=== PATIENT | male | born 1980 | race Caucasian/White ===

== ENCOUNTER 2017-06-15 01:07 | Emergency (ER) | payer MEDICARE ==
[2017-06-15] MEDS ORDERED: SODIUM CHLORIDE 0.9% 1000ML 1,000 ML IVS ONE (01:18)
--- NOTE | 2017-06-15 01:18 | ED.PDOC ---
History of Present Illness - General Chief Complaint: GI Problem Stated Complaint: N/V abdomen pain Time Seen by Provider: 06/15/17 01:17 Source: patient, family Exam Limitations: no limitations - History of Present Illness Initial Comments: Ander Murillo 36 y/o male stated that he had on and off nausea /vomiting for the last 4 days at least 3-4 x a day but today had it almost every 30 minutes and unable to get anything down including medications.Has history of DM 1 for 20 years.Had recently been treated for osteomyelitis and diabetic foot ulcer right foot. Timing/Duration: resolved prior to arrival, other - see hpi Improving Factors: nothing Worsening Factors: eating Associated Symptoms: nausea/vomiting, weakness Allergies/Adverse Reactions: Allergies NO KNOWN ALLERGY Allergy (Verified 06/15/17 01:15) Review of Systems - Review of Systems Constitutional: States: no symptoms reported EENTM: States: no symptoms reported Respiratory: States: no symptoms reported, cough Gastrointestinal/Abdominal: States: see HPI Skin: States: no symptoms reported Neurological: States: paresthesia - both lower extremities Past Medical History (General) - Patient Medical History Hx Hypertension: Yes Hx Diabetes: Yes Hx Other PMH: Yes - neuropathy,retinopathy,foot ulcer- right Surgical History: other - foot-right - Social History Hx Physical Abuse: No Hx Emotional Abuse: No Hx Suspected Abuse: No - Activities of Daily Living Patient Lives Alone: No - with family Family Medical History - Family History Mother Family History: Unknown Living Status: Still Living Hx Family Diabetes: Yes - multiple family members Hx Family Cancer: Yes - skin Physical Exam - Physical Exam General Appearance: Alert, Anxious, No apparent distress Eye Exam: right normal, left other - blurry vision -retinal detachment Ears, Nose, Throat: hearing grossly normal, normal pharynx, other - edentulous Neck: full range of motion, supple Respiratory: lungs clear, normal breath sounds Cardiovascular/Chest: normal peripheral pulses, regular rate, rhythm, tachycardia Peripheral Pulses: radial,right: 2+, radial,left: 2+, dorsalis pedis,right: 1+, dorsalis pedis,left: 1+ Gastrointestinal/Abdominal: normal bowel sounds, non tender, soft, no organomegaly Back Exam: no CVA tenderness, no vertebral tenderness Extremity: no pedal edema, no calf tenderness, other - loss of muscle mass Neurologic: sensory deficit - decrease sensation both feet Skin Exam: normal color, warm/dry Lymphatic: no adenopathy Progress - Progress Progress: 06/15/17 02:10 Last Vital Signs Temp 97.6 F 06/15/17 01:07 Pulse 112 H 06/15/17 02:05 Resp 16 06/15/17 02:05 BP 165/89 06/15/17 02:05 Pulse Ox 99 06/15/17 02:05 06/15/17 04:31 No further nausea/vomiting since arrival at ER - Results/Orders Results/Orders: Laboratory Tests 06/15/17 06/15/17 06/15/17 01:15 01:20 01:20 WBC 9.4 RBC 4.29 L Hgb 13.2 L Hct 37.7 L MCV 88.0 MCH 30.7 MCHC 34.9 RDW 13.5 Plt Count 331 MPV 8.1 Absolute Neuts (auto) 6.10 Absolute Lymphs (auto) 2.20 Absolute Monos (auto) 0.90 H Absolute Eos (auto) 0.10 Absolute Basos (auto) 0.10 Neutrophils % 65.3 Lymphocytes % 23.3 Monocytes % 9.5 H Eosinophils % 0.9 L Basophils % 1.0 Sodium 129 L Potassium 4.0 Chloride 90 L Carbon Dioxide 26 Anion Gap 17.0 BUN 33 H Creatinine 1.69 H BUN/Creatinine Ratio 19.5 POC Glucose 293 H Random Glucose 300 H Serum Osmolality 277.4 Calcium 9.2 Phosphorus Magnesium Total Bilirubin 0.7 AST 18 ALT 14 Alkaline Phosphatase 64 Troponin I Serum Total Protein 6.9 Albumin 3.0 L Globulin 3.9 H Albumin/Globulin Ratio 0.8 L Lipase 17 L 06/15/17 06/15/17 06/15/17 01:20 01:20 01:20 WBC RBC Hgb Hct MCV MCH MCHC RDW Plt Count MPV Absolute Neuts (auto) Absolute Lymphs (auto) Absolute Monos (auto) Absolute Eos (auto) Absolute Basos (auto) Neutrophils % Lymphocytes % Monocytes % Eosinophils % Basophils % Sodium Potassium Chloride Carbon Dioxide Anion Gap BUN Creatinine BUN/Creatinine Ratio POC Glucose Random Glucose Serum Osmolality Calcium Phosphorus 3.0 Magnesium 1.7 L Total Bilirubin AST ALT Alkaline Phosphatase Troponin I < 0.02 Serum Total Protein Albumin Globulin Albumin/Globulin Ratio Lipase 06/15/17 06/15/17 03:10 04:25 WBC RBC Hgb Hct MCV MCH MCHC RDW Plt Count MPV Absolute Neuts (auto) Absolute Lymphs (auto) Absolute Monos (auto) Absolute Eos (auto) Absolute Basos (auto) Neutrophils % Lymphocytes % Monocytes % Eosinophils % Basophils % Sodium Potassium Chloride Carbon Dioxide Anion Gap BUN Creatinine BUN/Creatinine Ratio POC Glucose 300 H 235 H Random Glucose Serum Osmolality Calcium Phosphorus Magnesium Total Bilirubin AST ALT Alkaline Phosphatase Troponin I Serum Total Protein Albumin Globulin Albumin/Globulin Ratio Lipase - EKG/XRAY/CT EKG: Sinus, Tachy, no ST T wave changes Comments: heart [id number] Departure - Departure Clinical Impression: Dehydration, Renal insufficiency Nausea & vomiting Qualifiers: Vomiting type: unspecified Vomiting Intractability: unspecified Qualified Code( s): R11.2 - Nausea with vomiting, unspecified Diabetes Qualifiers: Diabetes mellitus type: type 1 Diabetes mellitus complication status: with other specified complication Qualified Code(s): E10.69 - Type 1 diabetes mellitus with other specified complication Time of Disposition: 04:34 Disposition: Discharge to Home or Self Care Condition: Fair Departure Forms: ED Discharge - Pt. Copy, Patient Portal Self Enrollment Instructions: Gastroparesis, DI for Gastroparesis Additional Instructions: Continue with all home medication;Return to ER as needed ;Follow up with primary md for GI specialist referral
[2017-06-15] MEDS ORDERED: METOCLOPRAMIDE HCL INJ 10 MG/2 ML VIAL IV ONE (01:22)
[2017-06-15 01:26] VITALS: TEMP 97.6
[2017-06-15] MEDS ORDERED: MAGNESIUM SULFATE PREMIX 2GM 2 GM in PREMIX BAG 1 BAG IVPB ONE (01:57)
[2017-06-15] MEDS ORDERED: MAGNESIUM SULFATE PREMIX 2GM 50 ML IVPB ONE (02:03)
[2017-06-15] MEDS: INSULIN, REG.(HUMAN) 100 U/ML VIAL SUBCU ONE ×2 (02:05→02:12)
[2017-06-15] MEDS ORDERED: INSULIN, REG.(HUMAN) 100 U/ML VIAL SUBCU ONE (02:12)
[2017-06-15] MEDS ORDERED: PANTOPRAZOLE INJECTION 80 MG in SODIUM CHLORIDE 0.9% 100ML 80 ML IVPB ONE (02:16)
[2017-06-15] MEDS ORDERED: PANTOPRAZOLE SODIUM IV 40 MG VIAL ONE (02:33)
[2017-06-15] MEDS ORDERED: SODIUM CHLORIDE 0.9% 100ML 0 ML IVPB ONE (02:33)
[2017-06-15] MEDS ORDERED: SODIUM CHLORIDE 0.9% 100ML 100 ML IVPB ONE (02:34)
[2017-06-15] MEDS ORDERED: SODIUM CHLORIDE 0.9% 500ML 500 ML IVS ONE (03:02)
[2017-06-15 03:04] VITALS: O2SAT 98
[2017-06-15 04:41] VITALS: BP 135/91
== END 2017-06-15 04:47 | disposition home or self-care (01) ==
LOC: ER 01:07
DX: E86.0 Dehydration (principal); R11.2 Nausea with vomiting, unspecified; N28.9 Disorder of kidney and ureter, unspecified; E10.40 Type 1 diabetes mellitus with diabetic neuropathy, unspecified; E10.319 Type 1 diabetes mellitus with unspecified diabetic retinopathy without macular edema; E10.621 Type 1 diabetes mellitus with foot ulcer
CPT/HCPCS: 36415; 36416; 80053; 82948; 83690; 83735; 84100; 84484; 85025; 93005; J2765; J3475; J7030; J7040; J7050

== ENCOUNTER → 2017-06-22 | Outpatient (CLI) | payer MEDICARE | END | disposition home or self-care (01) | LOC: GMAB 17:28 | PROVIDERS: ATTEND Family Medicine | DX: E10.69 Type 1 diabetes mellitus with other specified complication (principal); L97.512 Non-pressure chronic ulcer of other part of right foot with fat layer exposed ==

== ENCOUNTER → 2017-08-31 | Outpatient (CLI) | payer MEDICARE | LOC: GMAB 18:35 | PROVIDERS: ATTEND Family Medicine | DX: D50.9 Iron deficiency anemia, unspecified (principal); M54.14 Radiculopathy, thoracic region ==

== ENCOUNTER 2017-09-08 10:33 | Observation (INO) | payer MEDICARE, OTHER ==
[2017-09-08] MEDS ORDERED: METOCLOPRAMIDE HCL INJ 10 MG/2 ML VIAL IV ONE (11:06)
[2017-09-08] MEDS ORDERED: SODIUM CHLORIDE 0.9% 1000ML 1,000 ML IVS ONE (11:06)
--- NOTE | 2017-09-08 11:10 | ED.PDOC ---
History of Present Illness - General Chief Complaint: Cardiovascular Problem Stated Complaint: chest pain and vomiting Time Seen by Provider: 09/08/17 11:05 Source: patient Exam Limitations: no limitations - History of Present Illness Initial Comments: HE HAS TYPE I DM ON INSULIN AND HAD DIABETIC GASTROPARESIS. HAS BEEN VOMITING FOR THE PAST THREE DAYS. Timing/Duration: days - THREE Worsening Factors: nothing Allergies/Adverse Reactions: Allergies NO KNOWN ALLERGY Allergy (Verified 09/08/17 10:45) Review of Systems - Review of Systems Constitutional: States: malaise, weakness EENTM: States: no symptoms reported Respiratory: States: no symptoms reported Cardiology: States: chest pain Gastrointestinal/Abdominal: States: abdominal pain, diarrhea Musculoskeletal: States: no symptoms reported Skin: States: no symptoms reported Neurological: States: no symptoms reported Endocrine: States: no symptoms reported Hematologic/Lymphatic: States: no symptoms reported Past Medical History (General) - Patient Medical History Hx Seizures: No Hx Stroke: No Hx Dementia: No Hx Asthma: No Hx of COPD: No Hx Cardiac Disorders: No Hx Congestive Heart Failure: No Hx Pacemaker: No Hx Hypertension: Yes Hx Thyroid Disease: No Hx Diabetes: Yes Hx Gastroesophageal Reflux: Yes Hx Renal Disease: No Hx Cancer: No Hx of HIV: No Hx Hepatitis C: No Hx MRSA: No Surgical History: other - Vaccination History Hx Tetanus, Diphtheria Vaccination: No Hx Influenza Vaccination: No - Social History Hx Tobacco Use: Yes Hx Alcohol Use: No Hx Substance Use: No Hx Substance Use Treatment: No Hx Depression: No Hx Physical Abuse: No Hx Emotional Abuse: No Hx Suspected Abuse: No Family Medical History - Family History Mother Family History: Unknown Living Status: Still Living Hx Family Diabetes: Yes - multiple family members Hx Family Cancer: Yes - skin Physical Exam - Physical Exam General Appearance: Alert, No apparent distress Eyes, Ears, Nose, Throat Exam: PERRL/EOMI, normal ENT inspection, pharynx normal , other - ORAL MUCOSA IS DRY Neck: non-tender, full range of motion, supple, normal inspection Respiratory: lungs clear, normal breath sounds, no respiratory distress, no accessory muscle use Cardiovascular/Chest: normal peripheral pulses, regular rate, rhythm, no edema, no gallop, no JVD, no murmur Peripheral Pulses: radial,right: 2+, radial,left: 2+ Gastrointestinal/Abdominal: normal bowel sounds, non tender, soft, no organomegaly, no pulsatile mass Rectal Exam: deferred Extremity: other - RIGHT BKA - JUL 01 2017 Neurologic: no motor/sensory deficits, alert, normal mood/affect, oriented x 3 Skin Exam: normal color Lymphatic: no adenopathy Progress - Results/Orders Results/Orders: THE LAB IS REPORTED: BS OF 294, CREATININE IS 1.9 Departure - Departure Clinical Impression: Vomiting Qualifiers: Vomiting type: unspecified Vomiting Intractability: intractable Nausea presence : with nausea Qualified Code(s): R11.2 - Nausea with vomiting, unspecified [id number] kidney injury Qualifiers: Acute renal failure type: unspecified Chronic kidney disease stage: unspecified stage Qualified Code(s): N17.9 - Acute kidney failure, unspecified; N18.9 - Chronic kidney disease, unspecified Diabetes mellitus Qualifiers: Diabetes mellitus type: type 1 Diabetes mellitus complication status: with kidney complications Time of Disposition: 12:59 Disposition: Admit Patient Condition: Fair Departure Forms: ED Discharge - Pt. Copy, Patient Portal Self Enrollment Instructions: DI for Chest Pain Decision To Admit - Decistion To Admit Decision to Admit Reason: Admit from ER Decision to Admit Date: 09/08/17 Decision to Admit Time: 12:57
--- NOTE | 2017-09-08 14:31 | HP ---
SUPERVISING PHYSICIAN: Bandar Knight M.D. CHIEF COMPLAINT: Nausea and vomiting. HISTORY OF PRESENT ILLNESS: This is a 36 year-old male patient with a 20 year history of type 1 diabetes mellitus. He has a known history of diabetic gastroparesis and takes Reglan for this. However, he came to the Emergency Room with some nausea and vomiting. It apparently has been going on for the last 3 days or so. In the E. R., he was noted to have an elevated creatinine on his labs. Creatinine was 1.9, baseline is lower than that, probably around 1.5. According to the patient, he was on vancomycin for a chronic wound infection and this threw him into some renal failure. He is not really aware of what his true baseline is but as of recently it has been around 1.5. Anyhow , he is referred for admission due to dehydration and acute kidney injury. At time of examination, the patient is alert and oriented. He is not in any severe distress. He does have a little bit of epigastric pain to palpation. PAST MEDICAL HISTORY: 1. Type 1 diabetes since 15 years old. 2. Hypertension recently. 3. Chronic renal insufficiency, according to him secondary to the vancomycin he was getting for chronic wound infection. 4. Diabetic gastroparesis. PAST SURGICAL HISTORY: 1. Right lower extremity [id number] amputation. CURRENT MEDICATIONS: 1. He is on a muscle relaxer but he does not know the name of it. 2. Tramadol. 3. Reglan 10 mg 3 times a day. 4. Lisinopril 10 mg daily. 5. Lantus 20 units in the morning, 20 units at night. 6. Humalog sliding scale. ALLERGIES: NO KNOWN DRUG ALLERGIES. FAMILY HISTORY: Hypertension and heart disease. SOCIAL HISTORY: Nondrinker, nonsmoker. No illicit drugs. REVIEW OF SYSTEMS: CONSTITUTIONAL: No fever or chills. No recent weight loss or weight gain. HEENT: No headaches, vision changes, nasal congestion, ear pain or throat pain. RESPIRATORY: No cough or history of pleuritic chest pain. CARDIOVASCULAR: No chest pain, palpitations or peripheral edema. GASTROINTESTINAL: Positive for some upper abdominal pain, nausea and vomiting. No diarrhea. No constipation. GENITOURINARY: No dysuria, frequency or flank pain. HEMATOLOGIC: No easy bruising or transfusion reaction. ENDOCRINE: No polydipsia, polyuria or polyphagia. No heat or cold intolerance. MUSCULOSKELETAL: No muscle cramps, joint pain or joint swelling. NEUROLOGIC: No syncope, seizures or confusion. PHYSICAL EXAMINATION: VITAL SIGNS: Blood pressure 149/77, heart rate 105, respiratory rate 18, temperature 99.2, oxygen saturation 97%. GENERAL: Mr. Murillo is a 36 year-old male patient in no active distress currently. HEENT: Normocephalic and atraumatic. EYES: Pupils are equal and reactive. NOSE: No drainage. THROAT: Slightly dry mucosa. NECK: Supple. Midline trachea. No jugular venous distention. CHEST: Symmetrical with equal rise and fall of the chest with inspiration and expiration. Lung sounds are clear to auscultation bilaterally. CARDIOVASCULAR: Regular rate and rhythm. Normal S1 and S2. Slightly tachycardic. ABDOMEN: Soft, positive bowel sounds. Some mild epigastric tenderness to palpation. GENITOURINARY: Exam is deferred. EXTREMITIES: Lower extremities with a noted right [id number] amputation. Left lower extremity is with no edema. Pulses are 1+. Capillary refill is less than 2 seconds. NEUROLOGIC: The patient is alert and oriented. LABORATORY: Noted in the E. R. with a white count 12.3, hemoglobin 10, hematocrit 29, platelet count 282. Sodium 132, potassium 3.8, chloride 94, CO2 is 25, BUN 39, creatinine 1.9, glucose 294, calcium 8.3, albumin 2.4. ASSESSMENT: 1. Acute on chronic kidney failure secondary to dehydration. 2. Diabetic gastroparesis with active nausea and vomiting. 3. Abdominal pain secondary to #2. 4. Uncontrolled diabetes mellitus. 5. Leukocytosis which is likely due to volume depletion, hemoconcentration. 6. Hypertension. PLAN: At this time, will rehydrate the patient with IV fluids. I am going to restart his insulin and home medications. Will give him p.r.n. for pain control and restart diet as well. Will recheck his labs in the morning to ensure that he has had improvement in his creatinine. Reglan has been ordered for his gastroparesis as well but he already takes this at home. #[id number] [facility]
[2017-09-08] MEDS ORDERED: GLUCAGON INJ 1 MG VIAL SUBCU PRN (16:42)
[2017-09-08] MEDS ORDERED: DEXTROSE 50% 25 GM/50 ML SYG IV PRN (16:42)
[2017-09-08] MEDS ORDERED: traMADol HCL 50 MG TAB PO PRN (16:48)
[2017-09-08] MEDS ORDERED: ONDANSETRON INJ 4 MG/2 ML VIAL IV PRN (16:48)
[2017-09-08] MEDS ORDERED: IV SET AND CAP CHANGE INJ INJ SCH (17:00)
[2017-09-08] MEDS: MORPHINE SULFATE INJ 10 MG/ML VIAL IV PRN ×2 (17:53→20:57)
[2017-09-08] MEDS: KCL 20 MEQ/NS 1,000 ML IVS PRN (17:55)
[2017-09-08] MEDS ORDERED: LISINOPRIL 10 MG TAB PO ONE (18:22)
[2017-09-08] MEDS ORDERED: CYCLOBENZAPRINE HCL 10 MG TAB PO PRN (18:46)
[2017-09-08] MEDS: METOCLOPRAMIDE HCL 5 MG TAB PO SCH (20:48)
[2017-09-08] MEDS: SODIUM CHLORIDE 0.9% (FLUSH) 10 ML SYG IV PRN (20:57)
[2017-09-08] MEDS: ATROPINE 1% OPHTH SOL 1 DROP DROPS LEFT_EYE SCH (20:59)
[2017-09-08] MEDS: PREDNISOLONE ACETATE 1% LEFT_EYE SCH (21:00)
[2017-09-08] MEDS: INSULIN DETEMIR 100 UNITS/ML PEN SUBCU SCH (21:00)
[2017-09-08] MEDS: INSULIN LISPRO 100 UNITS/ML PEN SUBCU SCH (21:00)
[2017-09-09] MEDS: KCL 20 MEQ/NS 1,000 ML IVS PRN (03:59)
[2017-09-09] MEDS: SODIUM CHLORIDE 0.9% (FLUSH) 10 ML SYG IV PRN ×2 (04:00→20:45)
[2017-09-09] MEDS: MORPHINE SULFATE INJ 10 MG/ML VIAL IV PRN ×4 (04:00→20:42)
[2017-09-09] MEDS: METOCLOPRAMIDE HCL 5 MG TAB PO SCH ×4 (06:10→21:08)
[2017-09-09] MEDS: OMEPRAZOLE CAP 20 MG CAP PO SCH (06:10)
[2017-09-09] MEDS: INSULIN LISPRO 100 UNITS/ML PEN SUBCU SCH ×4 (07:21→21:16)
[2017-09-09] MEDS: INSULIN DETEMIR 100 UNITS/ML PEN SUBCU SCH ×2 (08:25→21:11)
[2017-09-09] MEDS: ATROPINE 1% OPHTH SOL 1 DROP DROPS LEFT_EYE SCH ×2 (08:26→21:07)
[2017-09-09] MEDS ORDERED: LISINOPRIL 10 MG TAB PO SCH (09:00)
[2017-09-09] MEDS: PREDNISOLONE ACETATE 1% LEFT_EYE SCH (09:19)
[2017-09-09] MEDS ORDERED: MORPHINE SULFATE INJ 10 MG/ML VIAL ONE (10:01)
[2017-09-09] MEDS ORDERED: diphenhydrAMINE HCL 50 MG/ML VIAL IV ONE ×2 (10:30→13:28)
[2017-09-09] MEDS ORDERED: FUROSEMIDE INJ 40 MG/4 ML VIAL IV ONE ×2 (10:30→15:34)
[2017-09-09] MEDS ORDERED: ACETAMINOPHEN 325 MG TAB PO ONE ×2 (10:30→13:28)
[2017-09-09] MEDS ORDERED: SODIUM CHLORIDE 0.9% 500ML 500 ML IVS SCH (10:30)
[2017-09-09] MEDS: prednisoLONE ACETATE 1% OPHTH SOL 5 ML BTTL LEFT_EYE SCH ×4 (11:10→21:08)
--- NOTE | 2017-09-09 11:26 | PN ---
SUPERVISING PHYSICIAN: Bandar Knight MD DATE: 09/09/17 SUBJECTIVE: The patient is lying in bed. He complains of extreme weakness and being very tired. Otherwise, no changes. He is concerned that he would like to get his prothesis fitted tomorrow as he has cancelled his appointment several times, but at this point feels too weak to leave the hospital. OBJECTIVE: VITAL SIGNS: Afebrile. Heart rate up to 108 and is now 97. Blood pressure 124/78. Respiratory rate 18. O2 saturation 98% on room air. HEENT: Pale oral mucous membranes. LUNGS: Essentially clear to auscultation bilaterally. CARDIAC: Regular rate and rhythm. At times, he does become slightly tachycardic. GASTROINTESTINAL: Abdomen is soft, nondistended, nontender. Bowel sounds are positive. EXTREMITIES: There is a right ripyq-gei-obyk amputation. There is no edema to the left lower extremity. NEUROLOGIC: Awake, alert and oriented times three. He is very pale. LABORATORY: WBCs have normalized today to 9.4, but his hemoglobin has dropped from 10 to 8.3, hematocrit 29 yesterday and is 23.6 today. Sodium 137, potassium 4, chloride 103. Carbon dioxide 26, BUN 37, creatinine 1.94. Blood sugars have run between 45 and 87. Calcium 7.7. All other labs and films have been reviewed via the EMR. ASSESSMENT: 1. Acute on chronic kidney failure secondary to dehydration. 2. Anemia, most likely secondary to his chronic kidney failure. His hemoglobin has dropped 1.3 grams overnight. 3. Diabetic gastroparesis with nausea and vomiting on admission, now resolved. 4. Abdominal pain secondary to gastroparesis, improved. 5. Uncontrolled diabetes mellitus. 6. Leukocytosis, improved. 7. Hypertension. PLAN: We will continue present supportive care. I will give him 2 units of packed red blood cells due to his weakness and his drop in hemoglobin as well as his underlying chronic kidney disease. Hopefully we can discharge him late this evening or early tomorrow morning after the blood infusion is complete. I will recheck his labs at that time. I would like him to get his prosthesis fitted if possible tomorrow, so will discharge him if at all possible. I think he would benefit greatly from seeing a high risk ob and I will get him an appointment with Dr. Nina as an outpatient. At this point, we will continue to monitor the patient closely and follow as needed. Dr. Knight is the collaborating physician and available for consultation. #[id number] him if at a; possible MTDD
[2017-09-09] MEDS ORDERED: MAGNESIUM OXIDE 400 MG TAB ONE (23:30)
[2017-09-09] MEDS ORDERED: MAGNESIUM OXIDE 400 MG TAB PO ONE (23:59)
[2017-09-10 02:17] VITALS: TEMP 97; O2SAT 97
[2017-09-10] MEDS: OMEPRAZOLE CAP 20 MG CAP PO SCH (05:55)
[2017-09-10 06:09] VITALS: BP 153/94
--- NOTE | 2017-09-10 11:03 | DS ---
SUPERVISING PHYSICIAN: Bandar Knight MD DISCHARGE DIAGNOSIS: 1. Acute on chronic kidney failure secondary to dehydration. 2. Anemia, most likely secondary to his chronic kidney failure. His hemoglobin dropped 1.7 grams on the second day of admission. He received 2 units of packed red blood cells. 3. Diabetic gastroparesis with nausea and vomiting on admission, now improved. 4. Abdominal pain secondary to gastroparesis, improved. 5. Uncontrolled diabetes mellitus. 6. Leukocytosis, improved. 7. Hypertension, improved. HISTORY OF PRESENT ILLNESS: This is a 36-year-old male patient who has a history of diabetic gastroparesis and takes Reglan for this. He also has a significant history of diabetes mellitus, type 1. He presented to the Emergency Room with some nausea and vomiting that had been going on for 3 days prior to his admission. Creatinine was elevated on his labs at 1.9. His baseline is usually about 1.5. According to the patient, he was on vancomycin for a chronic wound infection of his foot and this threw him into some renal failure. He is not really aware of what his true baseline creatinine is but recently it has been 1.5 since the vancomycin administration. He was admitted to the hospital for dehydration and acute kidney injury. HOSPITAL COURSE: He was hydrated during his hospital stay, but overnight his hemoglobin dropped 1.7 grams down to 8.3. He was extremely weak and pale. His anemia may be due to his chronic kidney injury. He received 2 units of packed red blood cells. His hemoglobin came up to 10.4 and hematocrit 30.3. WBCs normalized to 7.8. Creatinine has stayed about 1.9 to 2. He is feeling much improved and will be discharged home. DISCHARGE PLAN: The patient will be discharged home in stable condition. He is to resume his previous medications and increase his activity as tolerated. He is to have a followup appointment his primary care physician, Dr. Pete Hu within 2 weeks. It would also be advisable for him to have a referral to Dr. Nina, tea plantation worker, due to his worsening kidney function and his chronic anemia. He is to return to the hospital or followup with Dr. Hu for any further problems or complaints. DISCHARGE MEDICATIONS: 1. Tramadol. 2. Prednisolone ophthalmic. 3. Cyclobenzaprine. 4. Atropine. 5. Zofran. 6. Lisinopril. 7. Metoclopramide. 8. Humalog insulin. 9. Levemir insulin. Dr. Knight is the collaborating physician and available for consultation. [facility][id number] [facility]ALS[facility]
[2017-09-10] MEDS ORDERED: MAGNESIUM OXIDE 400 MG TAB PO ONE (23:15)
== END 2017-09-10 06:50 | disposition home or self-care (01) ==
LOC: ER 10:33 → MS 14:30
PROVIDERS: ADMIT Nurse Practitioner; ATTEND Nurse Practitioner Acute Care
DX: N17.9 Acute kidney failure, unspecified (principal); E86.0 Dehydration; I12.9 Hypertensive chronic kidney disease with stage 1 through stage 4 chronic kidney disease, or unspecified chronic kidney disease; N18.9 Chronic kidney disease, unspecified; D63.1 Anemia in chronic kidney disease; E10.22 Type 1 diabetes mellitus with diabetic chronic kidney disease; E10.43 Type 1 diabetes mellitus with diabetic autonomic (poly)neuropathy; K31.84 Gastroparesis; E10.65 Type 1 diabetes mellitus with hyperglycemia; D72.829 Elevated white blood cell count, unspecified; R10.13 Epigastric pain; Z79.4 Long term (current) use of insulin; Z79.899 Other long term (current) drug therapy; Z89.511 Acquired absence of right leg below knee
CPT/HCPCS: 36415 ×4; 36416 ×7; 80048 ×2; 80053; 81001; 82009; 82948 ×12; 83735; 85025 ×3; 86850; 86900; 86901; 86922; 93005 ×2; 94760 ×3; 96361; 96372 ×2; 96374; 96375 ×2; 96376 ×2; 99284; G0378; J1200; J1815 ×2; J1940; J2270 ×6; J2405; J2765; J3480 ×2; J7030; J7040; P9016 ×2

== ENCOUNTER 2017-09-14 15:07 | Emergency (ER) | payer OTHER ==
[2017-09-14] MEDS ORDERED: PROMETHAZINE HCL INJ 25 MG in SODIUM CHLORIDE 0.9% 50ML 50 ML IVPB ONE (15:26)
[2017-09-14] MEDS ORDERED: SODIUM CHLORIDE 0.9% 1000ML 1,000 ML IVS ONE ×2 (15:26→17:46)
[2017-09-14] MEDS ORDERED: ONDANSETRON ODT 8 MG TAB SL ONE (15:26)
[2017-09-14] MEDS ORDERED: PROMETHAZINE HCL INJ 25 MG/ML VIAL ONE (15:35)
[2017-09-14] MEDS ORDERED: SODIUM CHLORIDE 0.9% 50ML 50 ML ONE (15:36)
[2017-09-14 15:38] VITALS: TEMP 96.7
--- NOTE | 2017-09-14 16:04 | RAD ---
EXAM DESCRIPTION: Abdomen Series CLINICAL HISTORY: n/v COMPARISON: None Available. TECHNIQUE: PA chest with supine and upright views of the abdomen] FINDINGS: The lungs are clear. The heart is normal size. There is an unremarkable bowel gas pattern. There is no mass or calculus. A small amount of contrast media is observed in the distal colon. IMPRESSION: Normal acute abdomen series Electronically signed by: Madhu Nolan MD 09/14/2017 4:03 PM [facility]
[2017-09-14] MEDS ORDERED: MAGNESIUM SULFATE PREMIX 2GM 2 GM in PREMIX BAG 1 BAG IVPB ONE (17:11)
[2017-09-14] MEDS ORDERED: MAGNESIUM SULFATE PREMIX 2GM 50 ML IVPB ONE (17:16)
[2017-09-14] MEDS ORDERED: ALUM & MAG HYDROX-SIMETHICONE 30 ML, LIDOCAINE VISCOUS 2% 15 ML PO ONE ×2 (17:42)
[2017-09-14] MEDS ORDERED: METOCLOPRAMIDE HCL INJ 10 MG/2 ML VIAL IV ONE (17:42)
[2017-09-14] MEDS ORDERED: INSULIN LISPRO 100 UNITS/ML PEN SUBCU ONE (17:43)
[2017-09-14] MEDS ORDERED: METOPROLOL TARTRATE 25 MG TAB PO ONE (17:44)
[2017-09-14] MEDS ORDERED: LIDOCAINE HCL 2% (MOUTH-THROAT) 15 ML UD ONE (17:45)
[2017-09-14] MEDS ORDERED: ALUM & MAG HYDROX-SIMETHICONE 30 ML UD ONE (17:45)
[2017-09-14] MEDS ORDERED: traMADol HCL 50 MG TAB PO ONE (17:55)
[2017-09-14] MEDS ORDERED: LISINOPRIL 10 MG TAB PO ONE (18:11)
[2017-09-14] MEDS ORDERED: SCOPOLAMINE PATCH 1.5MG 1 EA TD ONE (19:34)
--- NOTE | 2017-09-14 21:10 | ED.PDOC ---
History of Present Illness - General Chief Complaint: GI Problem Stated Complaint: vomiting Time Seen by Provider: 09/14/17 15:26 Source: patient Exam Limitations: no limitations - History of Present Illness Initial Comments: the patient is a 37-year-old male presenting to the emergency room secondary tonausea and vomiting the last 24 hours. He does have a history of significant diabetic gastroparesis. He was admitted secondary to this problem one to 2 weeks ago. He has been taking his Reglan. His blood pressure was elevated upon arrival here today. No real headache. He is uncertain what his blood pressures normally run at home but he does take lisinopril. No blood or bile in the vomitus. Timing/Duration: 24 hours Severity: moderate Improving Factors: nothing Worsening Factors: nothing Associated Symptoms: loss of appetite, malaise, nausea/vomiting, weakness Allergies/Adverse Reactions: Allergies NO KNOWN ALLERGY Allergy (Verified 09/08/17 10:45) Home Medications: Ambulatory Orders Atropine 1% Ophth Ladi [Isopto Atropine 1%] 1 drop LEFT_EYE BID 09/08/17 Cyclobenzaprine HCl 10 mg PO TID PRN 09/08/17 Insulin Lispro (Human) [Humalog] 8 unit SC DAILY 09/08/17 Lisinopril 10 mg PO DAILY 09/08/17 Metoclopramide HCl 10 mg PO TID 09/08/17 Ondansetron [Ondansetron Odt] 4 mg SL Q6H PRN 09/08/17 Tramadol HCl 50 mg PO Q4H PRN 09/08/17 prednisoLONE ACETATE 1% OPHTH [Econopred Plus] 1 drop LEFT_EYE QID 09/08/17 Insulin Detemir [Levemir Pen] 20 units SUBCU BID pen 09/09/17 Promethazine HCl 25 mg PO Q6H PRN #10 tab 09/14/17 Review of Systems - Review of Systems Constitutional: States: malaise EENTM: States: no symptoms reported Respiratory: States: no symptoms reported Cardiology: States: no symptoms reported Gastrointestinal/Abdominal: States: abdominal pain, nausea, vomiting Genitourinary: States: no symptoms reported Musculoskeletal: States: no symptoms reported Skin: States: no symptoms reported Neurological: States: no symptoms reported - hronic changes only. Endocrine: States: no symptoms reported All other Systems: No Change from Baseline Past Medical History (General) - Patient Medical History Hx Seizures: No Hx Stroke: No Hx Dementia: No Hx Asthma: No Hx of COPD: No Hx Cardiac Disorders: No Hx Congestive Heart Failure: No Hx Pacemaker: No Hx Hypertension: No Hx Thyroid Disease: No Hx Diabetes: Yes Hx Gastroesophageal Reflux: Yes Hx Renal Disease: No Hx Cancer: No Hx of HIV: No Hx Hepatitis C: No Hx MRSA: No - Vaccination History Hx Tetanus, Diphtheria Vaccination: No Hx Influenza Vaccination: Yes Hx Pneumococcal Vaccination: Yes - Social History Hx Tobacco Use: No Hx Alcohol Use: No Hx Substance Use: No Hx Substance Use Treatment: No Hx Depression: No Hx Physical Abuse: No Hx Emotional Abuse: No Hx Suspected Abuse: No Family Medical History - Family History Mother Family History: Unknown Living Status: Still Living Hx Family Diabetes: Yes - multiple family members Hx Family Cancer: Yes - skin Physical Exam - Physical Exam General Appearance: Alert, Other - vomiting and dry heaving Eye Exam: bilateral normal Ears, Nose, Throat: hearing grossly normal, normal ENT inspection, normal pharynx Neck: full range of motion, supple, normal inspection Respiratory: lungs clear, normal breath sounds, no accessory muscle use Cardiovascular/Chest: normal peripheral pulses, no edema, tachycardia - sinus tachycardiafrom 110-140 Peripheral Pulses: radial,right: 2+, radial,left: 2+, dorsalis pedis,right: 2+, dorsalis pedis,left: 2+ Gastrointestinal/Abdominal: non tender, soft Rectal Exam: deferred Back Exam: normal inspection, no CVA tenderness, no vertebral tenderness Extremity: normal range of motion, non-tender, no pedal edema, normal capillary refill, other - the patient has a right BKA 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, alert, normal mood/affect, oriented x 3 Skin Exam: pallor Comments: Vital Signs - 8 hr 09/14/17 09/14/17 09/14/17 15:23 16:08 17:00 Temperature 96.7 F L Pulse Rate [ 130 H 120 H 117 H Right Brachial] Respiratory 22 18 20 Rate Blood Pressure 182/124 189/121 206/127 [Right Arm] O2 Sat by Pulse 99 98 98 Oximetry 09/14/17 18:00 Temperature Pulse Rate [ 119 H Right Brachial] Respiratory 20 Rate Blood Pressure 191/115 [Right Arm] O2 Sat by Pulse 98 Oximetry blood pressures are down in the 160s systolic and by time of discharge heart rates are down to around 100-110 Progress - Progress Progress: 09/14/17 21:14 the patient's 37-year-old male presenting with nausea and vomiting likely related to his diabetic gastroparesis. He has received 2 g of magnesium for hypomagnesemia. He has received several anti-medics as well as a scopolamine patch. He has received IV fluids. He is resting comfortably. His renal function appears to be baseline. There is no significant elevation in his white blood cell count. No indication of any other acute pathology than his gastroparesis flaring. The patient will be written for Phenergan for as needed use. He can leave the scopolamine patch on for another day or so if he wishes but needs to take it off if he becomes altered in any way. He does need to record his blood pressures 3-4 times a day while he is at rest to see if he is maintaining good blood pressure control. his blood pressures were elevated here and did require an additional dose of metoprolol. If his blood pressures are remaining too high this may be contributing to his nausea and vomiting as well. He also needs to maintain tight diabetic control as this may be affecting his gastroparesis. He needs to follow up with his primary care doctor before the weekend. - Results/Orders Results/Orders: 09/14/17 15:27 Telemetry .CONTINUOUS UA [URINALYSIS] Stat 09/14/17 15:30 EKG STAT 09/14/17 17:46 Sodium Chloride 0.9% 1000ML [Ns 1000 ml] 1,000 ml IVS ONCE Laboratory Results - last 24 hr 09/14/17 09/14/17 15:30 15:30 WBC 12.9 H RBC 4.34 L Hgb 13.0 L Hct 37.5 L MCV 86.4 MCH 29.9 MCHC 34.8 RDW 14.2 Plt Count 321 MPV 7.2 L Absolute Neuts (auto) 9.80 H Absolute Lymphs (auto) 2.10 Absolute Monos (auto) 0.70 Absolute Eos (auto) 0.10 Absolute Basos (auto) 0.10 Neutrophils % 76.3 Lymphocytes % 16.0 L Monocytes % 5.6 Eosinophils % 1.1 Basophils % 1.0 Sodium 131 L Potassium 4.2 Chloride 95 L Carbon Dioxide 23 Anion Gap 17.2 BUN 27 H Creatinine 1.56 H BUN/Creatinine Ratio 17.3 Random Glucose 285 H Serum Osmolality 278.1 Calcium 9.1 Magnesium 1.7 L Total Bilirubin 0.5 AST 16 ALT 10 Alkaline Phosphatase 57 Creatine Kinase 137 CK-MB (CK-2) 2.8 CK-MB (CK-2) % Not Reportable Troponin I < 0.02 B-Natriuretic Peptide 32.2 Serum Total Protein 6.3 L Albumin 2.6 L Globulin 3.7 H Albumin/Globulin Ratio 0.7 L Amylase 27 L Lipase 16 L EKG shows sinus tachycardia at a rate of [address] segment changes concerning for ischemia. Normal axis. Normal R-wave progression. Normal QT interval. acute abdominal series shows no definitive pathology. Departure - Departure Clinical Impression: Gastroparesis, Dehydration, Hypomagnesemia, Uncontrolled hypertension Nausea and vomiting Qualifiers: Vomiting type: unspecified Vomiting Intractability: non-intractable Qualified Code(s): R11.2 - Nausea with vomiting, unspecified Disposition: Discharge to Home or Self Care Condition: Fair Departure Forms: ED Discharge - Pt. Copy, Patient Portal Self Enrollment Instructions: DI for Malignant Hypertension, DI for Gastroparesis, DI for Dehydration -- Adult Diet: diabetic diet Activity: increase activity as tolerated Prescriptions: Promethazine HCl 25 mg PO Q6H PRN #10 tab PRN Reason: Vomiting Home Medications: Ambulatory Orders Atropine 1% Ophth Ladi [Isopto Atropine 1%] 1 drop LEFT_EYE BID 09/08/17 Cyclobenzaprine HCl 10 mg PO TID PRN 09/08/17 Insulin Lispro (Human) [Humalog] 8 unit SC DAILY 09/08/17 Lisinopril 10 mg PO DAILY 09/08/17 Metoclopramide HCl 10 mg PO TID 09/08/17 Ondansetron [Ondansetron Odt] 4 mg SL Q6H PRN 09/08/17 Tramadol HCl 50 mg PO Q4H PRN 09/08/17 prednisoLONE ACETATE 1% OPHTH [Econopred Plus] 1 drop LEFT_EYE QID 09/08/17 Insulin Detemir [Levemir Pen] 20 units SUBCU BID pen 09/09/17 Promethazine HCl 25 mg PO Q6H PRN #10 tab 09/14/17 Additional Instructions: the patient's 37-year-old male presenting with nausea and vomiting likely related to his diabetic gastroparesis. He has received 2 g of magnesium for hypomagnesemia. He has received several anti-medics as well as a scopolamine patch. He has received IV fluids. He is resting comfortably. His renal function appears to be baseline. There is no significant elevation in his white blood cell count. No indication of any other acute pathology than his gastroparesis flaring. The patient will be written for Phenergan for as needed use. He can leave the scopolamine patch on for another day or so if he wishes but needs to take it off if he becomes altered in any way. He does need to record his blood pressures 3-4 times a day while he is at rest to see if he is maintaining good blood pressure control. his blood pressures were elevated here and did require an additional dose of metoprolol. If his blood pressures are remaining too high this may be contributing to his nausea and vomiting as well. He also needs to maintain tight diabetic control as this may be affecting his gastroparesis. He needs to follow up with his primary care doctor before the weekend.
[2017-09-14 21:17] VITALS: BP 162/108; O2SAT 97
== END 2017-09-14 21:40 | disposition home or self-care (01) ==
LOC: ER 15:07
DX: E86.0 Dehydration (principal); E11.43 Type 2 diabetes mellitus with diabetic autonomic (poly)neuropathy; K31.84 Gastroparesis; E83.42 Hypomagnesemia; I10 Essential (primary) hypertension
CPT/HCPCS: 74019; 80053; 82150; 82550; 82553; 83690; 83735; 83880; 84484; 85025; 93005; A4216; J1815; J2550; J2765; J3475; J7030

== ENCOUNTER → 2017-11-11 | Outpatient (CLI) | payer OTHER | LOC: GMAB 14:36 | PROVIDERS: ATTEND Family Medicine | DX: M54.14 Radiculopathy, thoracic region (principal) ==

== ENCOUNTER 2018-01-14 20:38 | Inpatient (IN) | payer OTHER ==
[2018-01-14] MEDS ORDERED: SODIUM CHLORIDE 0.9% 1000ML 1,000 ML ONE (20:47)
[2018-01-14] MEDS ORDERED: PANTOPRAZOLE SODIUM IV 40 MG VIAL IV ONE (21:06)
[2018-01-14] MEDS ORDERED: PROMETHAZINE HCL INJ 25 MG in SODIUM CHLORIDE 0.9% 50ML 50 ML IVPB ONE (21:06)
[2018-01-14] MEDS ORDERED: SODIUM CHLORIDE 0.9% 1000ML 1,000 ML IVS ONE ×2 (21:08→23:10)
[2018-01-14] MEDS ORDERED: SODIUM CHLORIDE 0.9% 50ML 50 ML ONE (21:29)
[2018-01-14] MEDS ORDERED: PROMETHAZINE HCL INJ 25 MG/ML VIAL ONE (21:29)
[2018-01-14] MEDS ORDERED: INSULIN, REG.(HUMAN) 100 U/ML VIAL IV ONE (21:40)
[2018-01-14] MEDS ORDERED: SUCRALFATE 1 GM/10 ML 1 GM UD PO ONE (21:42)
--- NOTE | 2018-01-14 21:42 | RAD ---
Acute abdominal series on 01/14/2018 CLINICAL INDICATION: Nausea and vomiting COMPARISON: 09/14/2017 FINDINGS: CHEST: The lungs are clear. Cardiac, hilar and mediastinal contours are within normal limits. Pulmonary vascularity is within normal limits. ABDOMEN: There is no free air. Bowel gas pattern is unremarkable. No abnormal calcification or mass effect is noted. No bony abnormality is noted. IMPRESSION: 1. No acute cardiopulmonary disease. 2. Nonspecific abdomen. Electronically signed by: Gustavo Frost 01/14/2018 9:41 PM CDT
--- NOTE | 2018-01-14 21:52 | ED.PDOC ---
History of Present Illness - General Chief Complaint: GI Problem Stated Complaint: vomiting x 4 days Time Seen by Provider: 01/14/18 20:41 Source: patient Exam Limitations: no limitations - History of Present Illness Initial Comments: the patient is a 37-year-old male presenting to the emergency room secondary to nausea and vomiting for last 4 days. He does have a history of cyclical nausea and vomiting with his gastroparesis and his diabetes. His blood sugars are getting worse over the last 2 days up into the 300s and 400s. He is starting to have more pain. He is unable keep himself hydrated. He has had multiple issues with this in the past and does take medications for it. No new symptoms as far as this episode compared to previous. No urinary symptoms. No shortness of breath or cough. He does of course have a little bit of substernal chest pain while he is throwing up. No blood and no bile. He denies any constipation at this time. Severity: moderate Improving Factors: nothing Worsening Factors: nothing Associated Symptoms: loss of appetite, malaise, nausea/vomiting Allergies/Adverse Reactions: Allergies NO KNOWN ALLERGY Allergy (Verified 09/08/17 10:45) Home Medications: Ambulatory Orders Atropine 1% Ophth Ladi [Isopto Atropine 1%] 1 drop LEFT_EYE BID 09/08/17 Cyclobenzaprine HCl 10 mg PO TID PRN 09/08/17 Insulin Lispro (Human) [Humalog] 8 unit SC DAILY 09/08/17 Lisinopril 10 mg PO DAILY 09/08/17 Metoclopramide HCl 10 mg PO TID 09/08/17 Ondansetron [Ondansetron Odt] 4 mg SL Q6H PRN 09/08/17 Tramadol HCl 50 mg PO Q4H PRN 09/08/17 prednisoLONE ACETATE 1% OPHTH [Econopred Plus] 1 drop LEFT_EYE QID 09/08/17 Insulin Detemir [Levemir Pen] 20 units SUBCU BID pen 09/09/17 Promethazine HCl 25 mg PO Q6H PRN #10 tab 09/14/17 Review of Systems - Review of Systems Constitutional: States: malaise, weakness EENTM: States: no symptoms reported Respiratory: States: no symptoms reported Cardiology: States: no symptoms reported Gastrointestinal/Abdominal: States: abdominal pain, nausea, vomiting Genitourinary: States: no symptoms reported Musculoskeletal: States: no symptoms reported Skin: States: no symptoms reported Neurological: States: no symptoms reported Endocrine: States: no symptoms reported All other Systems: No Change from Baseline Past Medical History (General) - Patient Medical History Hx Seizures: No Hx Stroke: No Hx Dementia: No Hx Asthma: No Hx of COPD: No Hx Cardiac Disorders: No Hx Congestive Heart Failure: No Hx Pacemaker: No Hx Hypertension: No Hx Thyroid Disease: No Hx Diabetes: Yes - Onset at age 15 Hx Gastroesophageal Reflux: No Hx Renal Disease: No Hx Cancer: No Hx of HIV: No Hx Hepatitis C: No Hx MRSA: No Surgical History: other - Vaccination History Hx Tetanus, Diphtheria Vaccination: Yes Hx Influenza Vaccination: Yes Hx Pneumococcal Vaccination: No Immunizations Up to Date: Yes - Social History Hx Tobacco Use: No Hx Alcohol Use: No Hx Substance Use: No Hx Substance Use Treatment: No Hx Depression: No Feels Threatened In Home Enviroment: No Feels Threatened In a Relationship: No Hx Physical Abuse: No Hx Emotional Abuse: No Hx Suspected Abuse: No - Activities of Daily Living Hospice Agency (if applicable):: None - Female History Patient is a Female of Child Bearing Age (10 -59 yrs old): No - Triage Comment ED Triage Comment: Pt states that he has been vomiting for four days. Pt complains of pain in epigastric area. Pt states he took SL Zofran but it has not stopped the vomiting. Family Medical History - Family History Mother Family History: Unknown Living Status: Still Living Hx Family Diabetes: Yes - multiple family members Hx Family Cancer: Yes - skin Physical Exam - Physical Exam General Appearance: Alert, No apparent distress Eye Exam: bilateral normal Ears, Nose, Throat: hearing grossly normal, normal ENT inspection Neck: full range of motion, supple Respiratory: lungs clear, normal breath sounds, no respiratory distress, no accessory muscle use Cardiovascular/Chest: normal peripheral pulses, no edema, tachycardia Peripheral Pulses: radial,right: 2+, radial,left: 2+, dorsalis pedis,right: 2+, dorsalis pedis,left: 2+ Gastrointestinal/Abdominal: soft, other - mild diffuse discomfort to palpation but no rebound or peritoneal signs. No definite palpable masses. 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, alert, normal mood/affect, oriented x 3 Skin Exam: pallor Comments: Vital Signs (72 hours) 01/14/18 01/14/18 20:42 21:51 Temperature 98.6 F 98.6 F Pulse Rate [ 125 H 125 H Monitor] Respiratory 20 20 Rate Blood Pressure 149/82 149/82 [Right Arm] O2 Sat by Pulse 100 100 Oximetry Laboratory Tests 01/14/18 01/14/18 01/14/18 20:46 20:56 20:56 WBC 11.1 H RBC 4.26 L Hgb 13.0 L Hct 37.9 L MCV 89.0 MCH 30.5 MCHC 34.2 RDW 13.3 Plt Count 476 H MPV 9.0 Absolute Neuts (auto) 6.30 Absolute Lymphs (auto) 3.80 H Absolute Monos (auto) 0.80 Absolute Eos (auto) 0.10 Absolute Basos (auto) 0.20 H Neutrophils % 56.7 Lymphocytes % 34.2 Monocytes % 7.2 Eosinophils % 0.5 L Basophils % 1.4 PT INR PTT (SP) Sodium 130 L Potassium 4.7 Chloride 94 L Carbon Dioxide 25 Anion Gap 15.7 BUN 27 H Creatinine 2.19 H BUN/Creatinine Ratio 12.3 POC Glucose > 400 H* Random Glucose 473 H* Serum Osmolality 286.7 Lactic Acid Calcium 8.6 Magnesium 2.0 Total Bilirubin 0.4 AST 13 ALT 15 Alkaline Phosphatase 53 Creatine Kinase 185 H CK-MB (CK-2) 3.7 CK-MB (CK-2) % 2.00 Troponin I < 0.02 Serum Total Protein 5.8 L Albumin 2.5 L Globulin 3.3 Albumin/Globulin Ratio 0.8 L Amylase 33 Lipase 18 L 01/14/18 01/14/18 20:56 20:56 WBC RBC Hgb Hct MCV MCH MCHC RDW Plt Count MPV Absolute Neuts (auto) Absolute Lymphs (auto) Absolute Monos (auto) Absolute Eos (auto) Absolute Basos (auto) Neutrophils % Lymphocytes % Monocytes % Eosinophils % Basophils % PT 9.9 INR 0.99 PTT (SP) 22.3 Sodium Potassium Chloride Carbon Dioxide Anion Gap BUN Creatinine BUN/Creatinine Ratio POC Glucose Random Glucose Serum Osmolality Lactic Acid 1.8 Calcium Magnesium Total Bilirubin AST ALT Alkaline Phosphatase Creatine Kinase CK-MB (CK-2) CK-MB (CK-2) % Troponin I Serum Total Protein Albumin Globulin Albumin/Globulin Ratio Amylase Lipase acute abdominal series fails to show any significant pathology. Progress - Progress Progress: 01/14/18 21:53 the patient's a 37-year-old male presenting with an episode of cyclical nausea and vomiting related to his diabetic gastroparesis resulting in significant dehydration and acute renal failure as well as severe hyperglycemia. He does not appear to be in DKA at this time. Admit for rehydration, control of blood sugars and control of nausea and vomiting. Departure - Departure Clinical Impression: Diabetic gastroparesis Acute renal failure Qualifiers: Acute renal failure type: unspecified Qualified Code(s): N17.9 - Acute kidney failure, unspecified Uncontrollable nausea and vomiting Qualifiers: Vomiting type: cyclical vomiting Qualified Code(s): G43.A1 - Cyclical vomiting , intractable Disposition: Admit Patient Condition: Fair Instructions: DI for Gastroesophageal Reflux Disease (GERD) Home Medications: Ambulatory Orders Atropine 1% Ophth Ladi [Isopto Atropine 1%] 1 drop LEFT_EYE BID 09/08/17 Cyclobenzaprine HCl 10 mg PO TID PRN 09/08/17 Insulin Lispro (Human) [Humalog] 8 unit SC DAILY 09/08/17 Lisinopril 10 mg PO DAILY 09/08/17 Metoclopramide HCl 10 mg PO TID 09/08/17 Ondansetron [Ondansetron Odt] 4 mg SL Q6H PRN 09/08/17 Tramadol HCl 50 mg PO Q4H PRN 09/08/17 prednisoLONE ACETATE 1% OPHTH [Econopred Plus] 1 drop LEFT_EYE QID 09/08/17 Insulin Detemir [Levemir Pen] 20 units SUBCU BID pen 09/09/17 Promethazine HCl 25 mg PO Q6H PRN #10 tab 09/14/17 Decision To Admit - Decistion To Admit Decision to Admit Reason: Medical Nature Decision to Admit Date: 01/14/18 Decision to Admit Time: 21:54
--- NOTE | 2018-01-14 22:05 | HP ---
SUPERVISING PHYSICIAN: Bandar Knight MD CHIEF COMPLAINT: Nausea and vomiting. HISTORY OF PRESENT ILLNESS: This is a 37 year-old male patient who has had a 3 to 4-day history of vomiting. He has type 1 diabetes and a significant history of gastroparesis. He has this nausea and vomiting in cycles. He has also had an elevated blood sugar during that time. They have been running between 250 and 350. He has been unable to keep his fluids down. He came to the Emergency Room and lab was done. His sodium was 130, potassium 4.7, chloride 94, carbon dioxide 25. BUN 27, creatinine 2.19. His baseline creatinine is usually about 1.5 to 1.6. Creatinine kinase was high at 185. Serum total protein was 5.9, lactic acid 1.8. Blood sugar in the Emergency Room was 473. He was given some regular insulin IV as well as several liters of fluid. WBCs were 11.1 with hemoglobin 13 and hematocrit 37.0. Platelet count 476,000. Abdominal x-ray showed no acute cardiopulmonary disease and nonspecific abdomen. He was given some Carafate, promethazine and Protonix IV. I was called for admission to the hospital. PAST MEDICAL HISTORY: 1. Type 1 diabetes since he was 15 years old. 2. Hypertension. 3. Chronic renal insufficiency. 4. Diabetic gastroparesis. PAST SURGICAL HISTORY: 1. Right lower extremity [id number] amputation. CURRENT MEDICATIONS: 1. Atropine ophthalmic solution. 2. Cyclobenzaprine. 3. Levemir. 4. Humalog insulin. 5 Lisinopril. 6. Reglan. 7. Zofran. 8. Prednisone ophthalmic drops. 9. Promethazine. 10. Tramadol. ALLERGIES: NO KNOWN DRUG ALLERGIES. SOCIAL HISTORY: Nondrinker, nonsmoker. No illicit drugs. REVIEW OF SYSTEMS: GENERAL: Positive for fatigue, negative for fever or weight changes. HEENT: Negative for ear pain, vision changes, sinus symptoms or sore throat. . RESPIRATORY: Negative for coughing, wheezing or shortness of breath. . CARDIOVASCULAR: Negative for chest pain, palpitations tachycardia. . GASTROINTESTINAL: As per history of present illness. . GENITOURINARY: Negative for hematuria, dysuria, polyuria. . SKIN: Negative for lesions or rashes. NEUROLOGIC: Negative for headaches, dizziness or seizures. ENDOCRINE: Positive for elevated blood sugars. PHYSICAL EXAMINATION: VITAL SIGNS: He is afebrile. Heart rate 125, blood pressure 149/82, respiratory rate 20, 02 saturation is 100% on room air. . GENERAL: This is a 38 year-old male who is laying in his bed in no active distress. HEENT: Normocephalic and atraumatic. Pupils are equal and reactive. Oropharynx is clear. Oral mucous membranes are slightly dry. NECK: Supple without mass. . CHEST: There is equal rise and fall of the chest with inspiration and expiration. Lung sounds are essential clear bilaterally. CARDIOVASCULAR: Tachycardiac rate, regular rhythm. ABDOMEN: Soft, diffuse tender especially in the epigastric area. Bowel sounds are positive.. EXTREMITIES: There is a right [id number] amputation. Left lower extremity has no edema and pulses are +1. . NEUROLOGIC: The patient is awake, alert and oriented x3. Labs and films are as per the history of present illness. IMPRESSION: 1. Acute on chronic kidney failure most likely secondary to dehydration. 2. Diabetes mellitus type 1.with elevated blood sugars above his normal x3 to 4 days. 3. Nausea and vomiting. 4. Gastroparesis. 5. Dehydration. 6. Hypertension. PLAN: We will admit the patient to the hospital. I have given him another liter of fluids and I will make him n.p.o. for bowel rest. His last blood sugar was 291 so I will put a primary fluid with some dextrose in it until he resumes his diet. I have also given him Zofran as well as a PPI for ulcer prophylaxis, Lovenox for DVT prophylaxis. We will hold his home medications for now until his diet is resumed. Since his blood sugars are so high, will do Accu-checks every 4 hours with sliding scale insulin. I have also given him some Haldol for his gastroparesis for his abdominal pain and will continue to monitor him closely and followup as needed. #[id number] [facility]
[2018-01-14] MEDS ORDERED: SODIUM CHLORIDE 0.9% (FLUSH) 10 ML SYG IV PRN (23:02)
[2018-01-14] MEDS ORDERED: GLUCAGON INJ 1 MG VIAL SUBCU PRN (23:07)
[2018-01-14] MEDS ORDERED: DEXTROSE 50% 25 GM/50 ML SYG IV PRN (23:07)
[2018-01-14] MEDS ORDERED: HALOPERIDOL LACTATE INJ 5 MG/ML VIAL IM PRN (23:07)
[2018-01-14] MEDS: ENOXAPARIN SODIUM 40 MG/0.4 ML SYG SUBCU SCH (23:26)
[2018-01-14] MEDS ORDERED: IV SET AND CAP CHANGE INJ INJ SCH (23:30)
[2018-01-15] MEDS: INSULIN LISPRO 100 UNITS/ML PEN SUBCU SCH ×6 (00:21→21:16)
[2018-01-15] MEDS: DEX 5% W/NACL 0.9% 1000ML 1,000 ML IVS PRN ×2 (01:20→09:09)
[2018-01-15] MEDS: PANTOPRAZOLE SODIUM IV 40 MG VIAL IV SCH (06:07)
[2018-01-15] MEDS: INSULIN DETEMIR 100 UNITS/ML PEN SUBCU SCH ×2 (09:14→21:17)
[2018-01-15] MEDS: SODIUM CHLORIDE 0.9% (FLUSH) 10 ML SYG IV SCH ×2 (09:16→21:21)
[2018-01-15] MEDS ORDERED: SODIUM CHLORIDE 0.9% 1000ML 1,000 ML IVS ONE ×3 (11:11→18:41)
[2018-01-15] MEDS: ONDANSETRON INJ 4 MG/2 ML VIAL IV PRN ×2 (11:33→17:00)
[2018-01-15] MEDS: METOCLOPRAMIDE HCL INJ 10 MG/2 ML VIAL IV SCH ×3 (11:33→23:56)
--- NOTE | 2018-01-15 17:58 | PN ---
DATE: 01/15/18 SUPERVISING PHYSICIAN: Chato Beckham M.D. SUBJECTIVE: The patient is lying in bed. Appears to be in no distress but does have an ill appearance and is very pale. He still continues to have some nausea and is still NPO at time of exam, but is without any significant abdominal pain. OBJECTIVE: VITAL SIGNS: Temperature 99.1, pulse 109, blood pressure 100/66, respirations 18, satting 98% on room air. Weight is 64.7 kg. I's and O's are not measured at time of exam. CHEST: Clear to auscultation bilaterally. HEART : Regular rate and rhythm. ABDOMEN: Soft with just some tenderness over the epigastric region. No rebound tenderness. Bowel sounds were positive. 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 NEUROLOGIC: He is alert and oriented times three. LABORATORY: Electrolytes show to be normal at 4.2 on potassium. BUN is elevated at 28, creatinine at 1.97 which is down from admission of 2.19. Blood sugars continue to be elevated between 291 up to 302 since admission. Serum osmolality 289, calcium 7.9. Liver functions all show to be within normal limits. Troponin is 0.02. Lipase was 18 on admission. Blood cultures remain negative. RADIOLOGY: No additional radiographic studies this morning. ASSESSMENT: 1. Type 2 diabetes mellitus poorly controlled with history of gastroparesis. 2. Nausea and vomiting secondary to #1. 3. Acute on chronic kidney failure secondary to prerenal azotemic state from moderate dehydration. 4. Hypertension. PLAN: The patient does appear to be dry. I will go ahead and give him 2 liters of nausea this morning and will follow that up with half normal saline with 20 of potassium at 150. I have stopped his D5 infusion and he is starting to eat. Will continue to monitor his input and should he continue to show good oral intake with his meal plan, will continue to increase as tolerated. Will continue with Accu-Cheks but go to a.c. and h.s. The goal is to rehydrate as he does seem to be quite dry and get his blood sugars better controlled. I will change his Reglan p.o. to IV for the next 24 hours in efforts to assist with his oral intake and nausea and vomiting. Once the patient is tolerating a regular diabetic diet and is showing good control of his blood sugars, hopefully will be able to discharge within the next 24 to 48 hours. Until then , continue to monitor and treat appropriately. #[id number] MTDD
[2018-01-15] MEDS: HYDROcodone 5MG/APAP 325MG 1 EA TAB PO PRN (19:36)
[2018-01-15] MEDS: ENOXAPARIN SODIUM 40 MG/0.4 ML SYG SUBCU SCH (21:16)
[2018-01-15] MEDS: KCL 20MEQ/0.45% NS 1,000 ML IVS PRN (22:13)
[2018-01-16] MEDS: KCL 20MEQ/0.45% NS 1,000 ML IVS PRN (05:00)
[2018-01-16] MEDS: METOCLOPRAMIDE HCL INJ 10 MG/2 ML VIAL IV SCH ×2 (05:12→15:56)
[2018-01-16] MEDS: PANTOPRAZOLE SODIUM IV 40 MG VIAL IV SCH (06:08)
[2018-01-16] MEDS ORDERED: INSULIN LISPRO 100 UNITS/ML PEN SUBCU SCH (07:00)
[2018-01-16] MEDS: INSULIN LISPRO 100 UNITS/ML PEN SUBCU SCH ×2 (07:19→11:48)
[2018-01-16] MEDS: INSULIN DETEMIR 100 UNITS/ML PEN SUBCU SCH (09:54)
[2018-01-16] MEDS: SODIUM CHLORIDE 0.9% (FLUSH) 10 ML SYG IV SCH (10:01)
[2018-01-16] MEDS: HYDROcodone 5MG/APAP 325MG 1 EA TAB PO PRN ×2 (10:31)
[2018-01-16] MEDS ORDERED: METOCLOPRAMIDE HCL 5 MG TAB ONE (11:52)
[2018-01-16] MEDS ORDERED: METOCLOPRAMIDE HCL 5 MG TAB PO SCH (12:00)
[2018-01-16 14:13] VITALS: TEMP 98
[2018-01-16 14:27] VITALS: BP 148/94; O2SAT 98
--- NOTE | 2018-01-17 09:25 | DS ---
SUPERVISING PHYSICIAN: Chato Beckham MD ADMISSION DIAGNOSIS: 1. Acute on chronic kidney failure secondary to dehydration. 2. Diabetes mellitus, type 1, with hyperglycemia, but no evidence for diabetic ketoacidosis, secondary to poor oral intake complicated by nausea and vomiting over the last 3 to 4 days. 3. Nausea and vomiting secondary to complications from diabetes mellitus, type 1, and gastroparesis. 4. Gastroparesis, complication of #2. 5. Dehydration. 6. Hypertension. 7. Leukocytosis, likely secondary to demargination from cyclic nausea and vomiting. DISCHARGE DIAGNOSIS: 1. Diabetes mellitus, type 1, complicated by gastroparesis. 2. Nausea and vomiting secondary to gastroparesis, improved with fluids. 3. Dehydration secondary to above, improved with fluids. 4. Hypertension, stable. 5. Normocytic/normochromic anemia, likely secondary to chronic kidney disease. REASON FOR HOSPITALIZATION: Mr. Murillo is a 37-year-old male patient with a longstanding history of diabetes mellitus, type 1. He presented to the Emergency Room with a 3 to 4 day history of vomiting. 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 He noted he had had some nausea and cyclic vomiting for well over 3 days and was having elevated sugars due to inability to continue to have any significant oral intake with his sugars being between 250 and 350. Initially in the Emergency Room, his labs showed his blood sugar was 473 with no evidence initially of diabetic ketoacidosis. At that time, he was given insulin IV as well as a couple of liters of fluid. The patient was then admitted for further management and evaluation. He was admitted in stable condition. LABORATORY STUDIES: Initial white count was 11,100. at discharge, white count was 10,500, hemoglobin 10.2, hematocrit 29.9 with platelet count 371,000. RBC indices were normocytic/normochromic. Differential was within normal limits. Chemistries initially on admission showed a hyponatremia of 130 with potassium 4.7, BUN 27, creatinine 2.19, glucose 473. Liver functions all within normal limits. Magnesium normal at 2.0, lactic acid 1.8. Troponin less than 0.02. Blood sugars with treatment and prior to discharge had leveled off and were running between 95 and 136. He did have one episode of hypoglycemia with less than 40, but responded well to treatment. Electrolytes after fluids and prior to discharge had normalized. BUN 18, creatinine had shown improvement and was returning to baseline status at 1.72. Urinalysis on admission showed greater than 300 protein, 500 glucose, 15 ketones. Microscopic revealed 5 to 10 RBCs with 1 to 3 epithelials, but no bacteria. MICROBIOLOGY: Blood culture showed no growth at 24 hours. RADIOLOGY: Initial abdominal x-ray in the Emergency Department prior to admission showed no acute cardiopulmonary disease and nonspecific abdomen per Radiology. HOSPITAL COURSE: Mr. Murillo was admitted as noted above for complications of gastroparesis, type 1 diabetes with cyclic nausea and vomiting. He was treated with Phenergan, Zofran and given well over 3 to 5 liters of fluid over the duration of admission and was showing good clinical response. His diet was advanced slowly until the date of discharge, he was actually tolerating a 2200 calorie ADA diet. He no longer had any nausea or vomiting and was having good urine output. Blood sugars have been better controlled and it was felt he had clinically stabilized well enough to be discharged to continue with outpatient management. Before discharge, he did have a little area on his foot that his mother was concerned about, a little scab that has been there for quite a bit of time and she requested we hopefully would be able to treat with some antibiotics as he has had some problems with this in the past. PLAN: Mr. Murillo was discharged on 01/16/18 with instructions to followup with his primary care physician. He is to resume all medications and take new prescriptions as directed. He was encouraged to push fluids to prevent dehydration. He was told to return to the hospital should he have any concerning symptoms or call 911. DISCHARGE DIET: Diabetic diet as tolerated. ACTIVITIES: Increase as tolerated. NEW PRESCRIPTIONS AT DISCHARGE: 1. Bactroban Ointment 1 application 3 times a day, one tube. 2. Bactrim-DS, 1 tablet twice a day, #20. No other new medications were started. He was to continue with all his other medications as prior authorization. CONDITION ON DISCHARGE: Stable and improved. #[id number] [facility]
== END 2018-01-16 15:50 | disposition home or self-care (01) | DRG 684 ==
LOC: ER 20:38 → OBSVTOIN 22:01 → MS 22:01
PROVIDERS: ADMIT Nurse Practitioner Acute Care; ATTEND Nurse Practitioner Family
DX: N17.9 Acute kidney failure, unspecified (principal); E86.0 Dehydration; E10.43 Type 1 diabetes mellitus with diabetic autonomic (poly)neuropathy; E10.22 Type 1 diabetes mellitus with diabetic chronic kidney disease; I12.9 Hypertensive chronic kidney disease with stage 1 through stage 4 chronic kidney disease, or unspecified chronic kidney disease; E10.65 Type 1 diabetes mellitus with hyperglycemia; N18.9 Chronic kidney disease, unspecified; K31.84 Gastroparesis; D63.1 Anemia in chronic kidney disease; Z89.612 Acquired absence of left leg above knee

== ENCOUNTER 2019-09-17 22:00 | Emergency (ER) | payer OTHER ==
[2019-09-17] MEDS ORDERED: SODIUM CHLORIDE 0.9% 1000ML 1,000 ML IVS ONE (22:12)
[2019-09-17] MEDS ORDERED: SODIUM CHLORIDE 0.9% (FLUSH) 10 ML SYG IV PRN (22:12)
[2019-09-17] MEDS ORDERED: ONDANSETRON INJ 4 MG/2 ML VIAL IV ONE (22:12)
[2019-09-17] MEDS ORDERED: PROMETHAZINE HCL INJ 25 MG in SODIUM CHLORIDE 0.9% 50ML 50 ML IVPB ONE (23:29)
[2019-09-17] MEDS ORDERED: PROMETHAZINE HCL INJ 25 MG/ML VIAL ONE (23:30)
[2019-09-17] MEDS ORDERED: SODIUM CHLORIDE 0.9% 50ML 50 ML ONE (23:30)
--- NOTE | 2019-09-18 00:08 | ED.PDOC ---
History of Present Illness - General Chief Complaint: GI Problem Stated Complaint: N/V since Time Seen by Provider: 09/17/19 22:10 - History of Present Illness Initial Comments: c/o having nausea and vomiting since 3 days , feel very fatigued and dehydrated , unable to eat or drink Improving Factors: nothing Worsening Factors: nothing Associated Symptoms: nausea/vomiting, weakness Review of Systems - Review of Systems Constitutional: States: no symptoms reported EENTM: States: no symptoms reported Respiratory: States: no symptoms reported Cardiology: States: no symptoms reported Gastrointestinal/Abdominal: States: see HPI Genitourinary: States: no symptoms reported Musculoskeletal: States: no symptoms reported Skin: States: no symptoms reported Neurological: States: no symptoms reported Endocrine: States: no symptoms reported Hematologic/Lymphatic: States: no symptoms reported Past Medical History (General) - Patient Medical History Hx Seizures: No Hx Stroke: Yes - 2019 Hx Dementia: No Hx Asthma: Yes - child Hx of COPD: No Hx Cardiac Disorders: No Hx Congestive Heart Failure: No Hx Pacemaker: No Hx Hypertension: Yes Hx Thyroid Disease: No Hx Diabetes: Yes Hx Gastroesophageal Reflux: Yes Hx Renal Disease: Yes - stage 4 kidney failure Hx Cancer: No Hx of HIV: No Hx Hepatitis C: No Hx MRSA: No - Vaccination History Hx Tetanus, Diphtheria Vaccination: Yes Hx Influenza Vaccination: Yes Hx Pneumococcal Vaccination: Yes - Social History Hx Tobacco Use: No Hx Alcohol Use: No Hx Substance Use: Yes Hx Substance Use Treatment: No Hx Depression: No Hx Physical Abuse: No Hx Emotional Abuse: No Hx Suspected Abuse: No Family Medical History - Family History Mother Family History: Unknown Living Status: Still Living Hx Family Diabetes: Yes - multiple family members Hx Family Cancer: Yes - skin Physical Exam - Physical Exam General Appearance: Lethargic, Ill Appearing Eyes, Ears, Nose, Throat Exam: PERRL/EOMI Neck: non-tender, full range of motion, supple, normal inspection Respiratory: lungs clear, normal breath sounds, no respiratory distress, no accessory muscle use Cardiovascular/Chest: regular rate, rhythm Gastrointestinal/Abdominal: tenderness - generalized Back Exam: normal inspection, no CVA tenderness, no vertebral tenderness Extremity: normal range of motion, non-tender, normal inspection, no pedal edema Neurologic: no motor/sensory deficits, alert, oriented x 3 Skin Exam: normal color, warm/dry Lymphatic: no adenopathy Progress - Progress Progress: 09/18/19 00:10 Labs and X-ay reviewed with the pt Pt still nauseated and unable to drink anything , called [facility] talked to Dr Russo who accepted the pt so will transfer the pt to [facility] [place] 09/19/19 21:28 - Results/Orders Results/Orders: 09/17/19 22:12 Sodium Chloride 0.9% (Flush) [Saline Flush Syringe] 10 ml IV PRN PRN 09/17/19 22:13 Hold Metformin x 48Hrs [id number] IV Care:Saline Lock per Protoc QSHIFT Abdoment/Pelvis w/o Contrast [CT] Stat EKG Assessment ONCE URINALYSIS Stat 09/17/19 22:15 EKG STAT 09/17/19 23:57 Chest,1 View [RAD] Stat Laboratory Results WBC 12.8 K/mm3 (4.8-10.8) H 09/17/19 22:25 RBC 3.94 M/mm3 (4.70-6.10) L 09/17/19 22:25 Hgb 12.3 gm/dL (14.0-18.0) L 09/17/19 22:25 Hct 36.9 % (42.0-52.0) L 09/17/19 22:25 MCV 93.7 fl (80.0-94.0) 09/17/19 22:25 MCH 31.1 pg (27.0-31.0) H 09/17/19 22:25 MCHC 33.2 g/dL (33.0-37.0) 09/17/19 22:25 RDW 17.2 % (11.5-14.5) H 09/17/19 22:25 Plt Count 215 K/mm3 (130-400) 09/17/19 22:25 MPV 9.7 fl (7.40-10.4) 09/17/19 22:25 Absolute Neuts (auto) 9.90 K/uL (1.8-6.8) H 09/17/19 22:25 Absolute Lymphs (auto) 2.20 K/uL (1.0-3.4) 09/17/19 22:25 Absolute Monos (auto) 0.60 K/uL (0.2-0.8) 09/17/19 22:25 Absolute Eos (auto) 0.00 K/uL (0.0-0.4) 09/17/19 22:25 Absolute Basos (auto) 0.10 K/uL (0.0-0.1) 09/17/19 22:25 Neutrophils % 77.4 % (42.0-78.0) 09/17/19 22:25 Lymphocytes % 17.0 % (20.0-50.0) L 09/17/19 22:25 Monocytes % 4.7 % (2.0-9.0) 09/17/19 22:25 Eosinophils % 0.1 % (1.0-5.0) L 09/17/19 22:25 Basophils % 0.8 % (0.0-2.0) 09/17/19 22:25 Sodium 138 mmol/L (135-145) 09/17/19 22:25 Potassium 4.0 mmol/L (3.6-5.0) 09/17/19 22:25 Chloride 85 mmol/L (101-111) L 09/17/19 22:25 Carbon Dioxide 21 mmol/L (21-31) 09/17/19 22:25 Anion Gap 36.0 (12-18) H 09/17/19 22:25 BUN 77 mg/dL (7-18) H 09/17/19 22:25 Creatinine 7.78 mg/dL (0.6-1.3) H* 09/17/19 22:25 BUN/Creatinine Ratio 9.9 (10-20) L 09/17/19 22:25 Random Glucose 184 mg/dL (70-105) H 09/17/19 22:25 Serum Osmolality 303.4 mOsm/L (275-295) H 09/17/19 22:25 Calcium 9.4 mg/dL (8.4-10.2) 09/17/19 22:25 Total Bilirubin 1.8 mg/dL (0.2-1.0) H 09/17/19 22:25 Direct Bilirubin < 0.1 mg/dL (0-0.2) 09/17/19 22:25 Indirect Bilirubin 1.7 mg/dL (0.2-0.8) H 09/17/19 22:25 AST 37 IU/L (10-42) 09/17/19 22:25 ALT 46 IU/L (10-60) 09/17/19 22:25 Alkaline Phosphatase 74 IU/L (42-121) 09/17/19 22:25 Serum Total Protein 7.8 gm/dL (6.4-8.2) 09/17/19 22:25 Albumin 4.1 g/dl (3.2-5.5) 09/17/19 22:25 Lipase 33 U/L (22-51) 09/17/19 22:25 Serum Ketones Small 09/17/19 22:25 Departure - Departure Clinical Impression: Gastroenteritis, Dehydration, Diabetes, Vomiting, Uncontrollable nausea and vomiting Time of Disposition: 00:14 Disposition: Transfer to Hospital Condition: Fair Departure Forms: ED Discharge - Pt. Copy, Patient Portal Self Enrollment Referrals: Benny Savgae MD [Primary Care Provider] - 1-2 Weeks Home Medications: Ambulatory Orders Atropine 1% Ophth Ladi [Isopto Atropine 1%] 1 drop LEFT_EYE BID PRN 09/08/17 Insulin Lispro [Humalog] 8 unit SC DAILY 09/08/17 Metoclopramide HCl [Metoclopramide Hydrochlor] 10 mg PO TID 09/08/17 Ondansetron [Ondansetron Odt] 4 mg SL Q6H PRN 09/08/17 prednisoLONE ACETATE 1% OPHTH [Econopred Plus] 1 drop LEFT_EYE QID PRN 09/08/17 Insulin Detemir [Levemir Pen] 20 units SUBCU BID pen 09/09/17 Meclizine HCl [Meclizine 25] 25 mg PO DAILY PRN 01/15/18 Pantoprazole Sodium 40 mg PO BID 01/15/18 Mupirocin 2 % Oint [Bactroban Oint] 1 applic TOP TID #1 tube 01/16/18 Sulfa/Trimeth 800/160 (Ds) Tab [Bactrim DS] 1 tablet PO BID #20 tab 01/16/18
--- NOTE | 2019-09-18 00:24 | CT ---
EXAM DESCRIPTION: Abdoment/Pelvis w/o Contrast CLINICAL HISTORY: 39 years Male abdominal pain COMPARISON: None TECHNIQUE: Images were obtained in axial, sagittal, and coronal planes. This exam was performed according to our departmental dose-optimization program which includes use of Automated Exposure Control, adjustment of the mA and/or kV according to patient size and/or use of iterative reconstruction technique. FINDINGS: Small to moderate pericardial effusion. No abnormality lower lungs bilaterally. Small hiatal hernia. No abnormality involving the liver, spleen, pancreas, gallbladder, or adrenal glands bilaterally. Extensive vascular calcifications. No obstructing renal calcifications bilaterally. No hydronephrosis bilaterally. Markedly distended bladder. Mild to moderate perinephric stranding bilaterally. Appendix within normal limits. No bowel obstruction, perforation, or inflammation. Calcification abdominal aorta with no dilatation seen. No adenopathy or abnormal fluid collections seen. No acute osseous abnormality. IMPRESSION: Mild to moderate perinephric stranding bilaterally. Consider inflammatory process. Marked bladder distention. Otherwise no acute intra-abdominal abnormality. Small to moderate pericardial effusion. Electronically signed by: Mery Valles MD 09/18/2019 12:22 AM TRACER CLERK
--- NOTE | 2019-09-18 00:34 | RAD ---
EXAM: Chest,1 View CLINICAL INDICATION: 39-year-old male with nausea, vomiting and end-stage renal disease. TECHNIQUE: Single view, AP portable chest was obtained. COMPARISON: 01/14/2018. FINDINGS: Unremarkable cardiac and mediastinal silhouette. Heart size is normal. Lungs are clear without focal opacity, pneumothorax or pleural effusions. The visualized bones are within normal limits. IMPRESSION: No acute cardiopulmonary abnormalities. Electronically signed by: Yolande Orellana MD 09/18/2019 12:32 AM [facility] [place]
[2019-09-18] MEDS ORDERED: PIPERACILLIN/TAZOBACTAM 2.25 GM in SODIUM CHLORIDE 0.9% 50ML 50 ML IVPB ONE (00:48)
[2019-09-18] MEDS ORDERED: PIPERACILLIN/TAZOBACTAM 2.25 GM VIAL IVPB ONE (01:20)
[2019-09-18] MEDS ORDERED: SODIUM CHLORIDE 0.9% 50ML 50 ML ONE (01:21)
[2019-09-18 02:02] VITALS: BP 185/104; TEMP 100.1; O2SAT 98
== END 2019-09-18 02:25 | disposition short-term general hospital (02) ==
LOC: ER 22:00
DX: K52.9 Noninfective gastroenteritis and colitis, unspecified (principal); E86.0 Dehydration; E11.22 Type 2 diabetes mellitus with diabetic chronic kidney disease; I12.9 Hypertensive chronic kidney disease with stage 1 through stage 4 chronic kidney disease, or unspecified chronic kidney disease; N18.4 Chronic kidney disease, stage 4 (severe); K21.9 Gastro-esophageal reflux disease without esophagitis; Z79.4 Long term (current) use of insulin; Z79.899 Other long term (current) drug therapy
CPT/HCPCS: 71045; 74176; 80048; 80076; 82009; 83690; 85025; 93005; A4216; J2405; J2543; J2550; J7030

== ENCOUNTER 2019-11-03 09:59 | Emergency (ER) | payer OTHER ==
[2019-11-03] MEDS ORDERED: PROMETHAZINE HCL INJ 25 MG/ML VIAL ONE ×2 (10:34→14:50)
[2019-11-03] MEDS ORDERED: SODIUM CHLORIDE 0.9% 50ML 50 ML ONE ×2 (10:34→14:50)
[2019-11-03] MEDS: PROMETHAZINE HCL INJ 25 MG in SODIUM CHLORIDE 0.9% 50ML 50 ML IVPB ONE ×2 (10:39→14:57)
[2019-11-03] MEDS: METOPROLOL TARTRATE INJ 5 MG/5 ML VIAL IV ONE ×2 (10:40→12:12)
[2019-11-03] MEDS: SCOPOLAMINE PATCH 1.5MG 1 EA TD ONE (10:40)
[2019-11-03] MEDS: KCL 20 MEQ/NS 1,000 ML IVS ONE (11:01)
--- NOTE | 2019-11-03 11:09 | RAD ---
EXAM DESCRIPTION: Abdomen Series: CR/DR/XR. CLINICAL HISTORY: nv, gastroparesis COMPARISON: 3 views obstructive series December 2017. TECHNIQUE: AP upper abdomen and chest upright, AP chest, and AP supine abdomen and pelvis. FINDINGS: Minimal interstitial densities in the bilateral lungs but no consolidation. No pleural effusion or pneumothorax. Heart size and cardiopulmonary vascular structures are unremarkable. No free air under the diaphragms. Air-fluid levels in the small bowel and moderate amount of fecal material in the proximal colon. No distended segments of small bowel and colon. Rectosigmoid distended with fecal matter. Minimal gas. No abnormal radiodense objects in overlying the urinary tracts. Pelvic vascular calcifications.. IMPRESSION: No acute process in the lungs. No free air under the diaphragms. Most likely small bowel stasis with moderate constipation proximal colon. Electronically signed by: Mateo Chun MD 11/03/2019 11:08 AM CDT
[2019-11-03] MEDS: SUCRALFATE 1 GM/10 ML 1 GM UD PO ONE (12:12)
[2019-11-03] MEDS: cloNIDine HCL 0.1 MG TAB PO ONE (12:12)
[2019-11-03] MEDS: CARVEDILOL 12.5 MG TAB PO ONE (14:57)
[2019-11-03] MEDS: MORPHINE SULFATE INJ 10 MG/ML VIAL IV ONE (15:08)
--- NOTE | 2019-11-03 16:17 | ED.PDOC ---
History of Present Illness - General Chief Complaint: GI Problem Stated Complaint: n/v,elevated BP Time Seen by Provider: 11/03/19 10:04 Source: patient, family Exam Limitations: no limitations - History of Present Illness Initial Comments: The patient is a 39-year-old male that is a diabetic presenting secondary to nausea and vomiting since last night. He has had cyclical nausea and vomiting from his diabetic gastroparesis for quite some time but it flared up significantly last night. He has a scopolamine patch in place and has been using Zofran to no avail. No fevers. He does see a family reunification specialist. He is on dialysis. He is due for dialysis tomorrow. No syncope or near syncope. No point abdominal pain. No fever. No new symptoms outside of the gastroparesis cyclical nausea and vomiting flare. Timing/Duration: other - 12 hours Severity: severe Improving Factors: nothing Worsening Factors: eating Associated Symptoms: chest pain - With vomiting, loss of appetite, malaise, nausea/vomiting Allergies/Adverse Reactions: Allergies NO KNOWN ALLERGY Allergy (Verified 09/17/19 22:14) Home Medications: Ambulatory Orders Atropine 1% Ophth Ladi [Isopto Atropine 1%] 1 drop LEFT_EYE BID PRN 09/08/17 Insulin Lispro [Humalog] 8 unit SC DAILY 09/08/17 Metoclopramide HCl [Metoclopramide Hydrochlor] 10 mg PO TID 09/08/17 Ondansetron [Ondansetron Odt] 4 mg SL Q6H PRN 09/08/17 prednisoLONE ACETATE 1% OPHTH [Econopred Plus] 1 drop LEFT_EYE QID PRN 09/08/17 Insulin Detemir [Levemir Pen] 20 units SUBCU BID pen 09/09/17 Meclizine HCl [Meclizine 25] 25 mg PO DAILY PRN 01/15/18 Pantoprazole Sodium 40 mg PO BID 01/15/18 Mupirocin 2 % Oint [Bactroban Oint] 1 applic TOP TID #1 tube 01/16/18 Sulfa/Trimeth 800/160 (Ds) Tab [Bactrim DS] 1 tablet PO BID #20 tab 01/16/18 Carvedilol 6.25 mg PO BID #60 tab 11/03/19 Ondansetron Odt [Zofran ODT] 4 mg PO Q8HR PRN #10 tab 11/03/19 Promethazine HCl 25 mg PO Q6H PRN #10 tab 11/03/19 Promethazine Supp [Phenergan Suppository] 12.5 mg RI Q4HR PRN #10 sup 11/03/19 Review of Systems - Review of Systems Constitutional: States: malaise EENTM: States: blurred vision - Chronic Respiratory: States: no symptoms reported Cardiology: States: chest pain - With vomiting Gastrointestinal/Abdominal: States: constipation, nausea, vomiting Genitourinary: States: no symptoms reported Musculoskeletal: States: no symptoms reported - Chronic changes only Skin: States: no symptoms reported - Chronic changes only Neurological: States: no symptoms reported - Chronic changes only Endocrine: States: no symptoms reported All other Systems: No Change from Baseline Past Medical History (General) - Patient Medical History Hx Seizures: No Hx Stroke: Yes - 2019 Hx Dementia: No Hx Asthma: Yes - child Hx of COPD: No Hx Cardiac Disorders: No Hx Congestive Heart Failure: No Hx Pacemaker: No Hx Hypertension: Yes Hx Thyroid Disease: No Hx Diabetes: Yes Hx Gastroesophageal Reflux: Yes Hx Renal Disease: Yes - stage 4 kidney failure,Dialysis Hx Cancer: No Hx of HIV: No Hx Hepatitis C: No Hx MRSA: No - Vaccination History Hx Tetanus, Diphtheria Vaccination: Yes Hx Influenza Vaccination: Yes Hx Pneumococcal Vaccination: No - Social History Hx Tobacco Use: Yes Hx Alcohol Use: No Hx Substance Use: Yes Hx Substance Use Treatment: No Hx Depression: No Hx Physical Abuse: No Hx Emotional Abuse: No Hx Suspected Abuse: No Family Medical History - Family History Mother Family History: Unknown Living Status: Still Living Hx Family Diabetes: Yes - multiple family members Hx Family Cancer: Yes - skin Physical Exam - Physical Exam General Appearance: Alert, Other - Vomiting Eye Exam: bilateral normal - Chronic vision changes Ears, Nose, Throat: hearing grossly normal, normal pharynx Neck: full range of motion, supple Respiratory: lungs clear, normal breath sounds, no respiratory distress, no accessory muscle use Cardiovascular/Chest: normal peripheral pulses, regular rate, rhythm, no edema Peripheral Pulses: radial,right: 2+, radial,left: 2+, dorsalis pedis,right: 2+, dorsalis pedis,left: 2+ Gastrointestinal/Abdominal: non tender, soft Rectal Exam: deferred Back Exam: no CVA tenderness, no vertebral tenderness Extremity: normal range of motion, no pedal edema, normal capillary refill, other - Chronic amputations 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, alert, normal mood/affect, oriented x 3, other - Chronic neurological changes related to diabetes Skin Exam: normal color Comments: Vital Signs - 24 hr 11/03/19 11/03/19 11/03/19 10:14 11:37 12:44 Temperature 98.3 F Pulse Rate [ 99 H 92 H 88 Left Brachial] Respiratory 20 18 20 Rate Blood Pressure 213/126 214/116 194/103 [Left Arm] O2 Sat by Pulse 95 92 L 95 Oximetry 11/03/19 11/03/19 11/03/19 13:33 14:00 15:00 Temperature Pulse Rate [ 51 L 82 100 H Left Brachial] Respiratory 20 16 16 Rate Blood Pressure 94/41 185/97 240/132 [Left Arm] O2 Sat by Pulse 94 L 94 L 95 Oximetry 11/03/19 16:00 Temperature Pulse Rate [ 90 Left Brachial] Respiratory 16 Rate Blood Pressure 178/93 [Left Arm] O2 Sat by Pulse 95 Oximetry Progress - Progress Progress: 11/03/19 16:19 The patient is a 39-year-old male presenting to the emergency room secondary to cyclical nausea and vomiting related to diabetic gastroparesis. The patient has received several rounds of nausea medications along with some IV fluids with a small amount potassium for the hypokalemia. He has received other GI medications as well. Additionally the patient has severe hypertension and has been unable to keep down his blood pressure medications. He received several doses of IV Lopressor as well as a dose of oral metoprolol here along with a dose of clonidine. Blood pressures are currently improving. The patient will be written for carvedilol 6.25 mg twice daily for the next month. He will also be written for additional Zofran, oral Phenergan and rectal Phenergan for as needed use. He does need to keep follow-up with dialysis tomorrow and follow-up with his family reunification specialist. Needs to keep himself well-hydrated and monitor his diabetes closely. ER warnings are given for any significant worsening. brenda galarza [phone] - Results/Orders Results/Orders: Sinus rhythm at 99 bpm. Prolonged QT interval. Mild right axis deviation. LVH criteria. No ST segment or T wave changes indicative of acute ischemia. Mild right atrial dilation. Laboratory Tests 11/03/19 11/03/19 11/03/19 10:30 10:30 10:30 WBC 10.0 RBC 4.02 L Hgb 12.2 L Hct 37.4 L MCV 93.1 MCH 30.4 MCHC 32.7 L RDW 16.7 H Plt Count 231 MPV 9.4 Absolute Neuts (auto) 8.10 H Absolute Lymphs (auto) 1.40 Absolute Monos (auto) 0.40 Absolute Eos (auto) 0.00 Absolute Basos (auto) 0.10 Neutrophils % 81.3 H Lymphocytes % 13.6 L Monocytes % 4.3 Eosinophils % 0.1 L Basophils % 0.7 Sodium 141 Potassium 3.1 L Chloride 98 L Carbon Dioxide 26 Anion Gap 20.1 H BUN 26 H Creatinine 4.22 H BUN/Creatinine Ratio 6.2 L Random Glucose 208 H Serum Osmolality 292.1 Lactic Acid 1.0 Calcium 8.5 Magnesium 2.0 Total Bilirubin 1.2 H AST 26 ALT 21 Alkaline Phosphatase 71 Creatine Kinase 228 H* CK-MB (CK-2) 5.4 H* CK-MB (CK-2) % 2.37 Troponin I 0.03 B-Natriuretic Peptide 2390.0 H* Serum Total Protein 6.5 Albumin 3.3 Globulin 3.2 Albumin/Globulin Ratio 1.0 L Amylase 45 Lipase 23 Serum Ketones 11/03/19 10:30 WBC RBC Hgb Hct MCV MCH MCHC RDW Plt Count MPV Absolute Neuts (auto) Absolute Lymphs (auto) Absolute Monos (auto) Absolute Eos (auto) Absolute Basos (auto) Neutrophils % Lymphocytes % Monocytes % Eosinophils % Basophils % Sodium Potassium Chloride Carbon Dioxide Anion Gap BUN Creatinine BUN/Creatinine Ratio Random Glucose Serum Osmolality Lactic Acid Calcium Magnesium Total Bilirubin AST ALT Alkaline Phosphatase Creatine Kinase CK-MB (CK-2) CK-MB (CK-2) % Troponin I B-Natriuretic Peptide Serum Total Protein Albumin Globulin Albumin/Globulin Ratio Amylase Lipase Serum Ketones Small Acute abdominal series is consistent with small bowel stasis and constipation. Chest x-ray is essentially clear. Departure - Departure Clinical Impression: Diabetic gastroparesis associated with type 1 diabetes mellitus, Hypokalemia, Dehydration, Malignant hypertension Disposition: Discharge to Home or Self Care Condition: Fair Departure Forms: ED Discharge - Pt. Copy, Patient Portal Self Enrollment Instructions: Nausea and Vomiting, Adult Diet: diabetic diet, low salt diet Activity: increase activity as tolerated Referrals: Benny Savage MD [Primary Care Provider] - 1-2 Weeks Prescriptions: Promethazine Supp [Phenergan Suppository] 12.5 mg RI Q4HR PRN #10 sup PRN Reason: Nausea/Vomiting Ondansetron Odt [Zofran ODT] 4 mg PO Q8HR PRN #10 tab PRN Reason: Nausea--Moderate Carvedilol 6.25 mg PO BID #60 tab Promethazine HCl 25 mg PO Q6H PRN #10 tab PRN Reason: Vomiting Home Medications: Ambulatory Orders Atropine 1% Ophth Ladi [Isopto Atropine 1%] 1 drop LEFT_EYE BID PRN 09/08/17 Insulin Lispro [Humalog] 8 unit SC DAILY 09/08/17 Metoclopramide HCl [Metoclopramide Hydrochlor] 10 mg PO TID 09/08/17 Ondansetron [Ondansetron Odt] 4 mg SL Q6H PRN 09/08/17 prednisoLONE ACETATE 1% OPHTH [Econopred Plus] 1 drop LEFT_EYE QID PRN 09/08/17 Insulin Detemir [Levemir Pen] 20 units SUBCU BID pen 09/09/17 Meclizine HCl [Meclizine 25] 25 mg PO DAILY PRN 01/15/18 Pantoprazole Sodium 40 mg PO BID 01/15/18 Mupirocin 2 % Oint [Bactroban Oint] 1 applic TOP TID #1 tube 01/16/18 Sulfa/Trimeth 800/160 (Ds) Tab [Bactrim DS] 1 tablet PO BID #20 tab 01/16/18 Carvedilol 6.25 mg PO BID #60 tab 11/03/19 Ondansetron Odt [Zofran ODT] 4 mg PO Q8HR PRN #10 tab 11/03/19 Promethazine HCl 25 mg PO Q6H PRN #10 tab 11/03/19 Promethazine Supp [Phenergan Suppository] 12.5 mg RI Q4HR PRN #10 sup 11/03/19 Additional Instructions: The patient is a 39-year-old male presenting to the emergency room secondary to cyclical nausea and vomiting related to diabetic gastroparesis. The patient has received several rounds of nausea medications along with some IV fluids with a small amount potassium for the hypokalemia. He has received other GI medications as well. Additionally the patient has severe hypertension and has been unable to keep down his blood pressure medications. He received several doses of IV Lopressor as well as a dose of oral metoprolol here along with a dose of clonidine. Blood pressures are currently improving. The patient will be written for carvedilol 6.25 mg twice daily for the next month. He will also be written for additional Zofran, oral Phenergan and rectal Phenergan for as needed use. He does need to keep follow-up with dialysis tomorrow and follow-up with his family reunification specialist. Needs to keep himself well-hydrated and monitor his diabetes closely. ER warnings are given for any significant worsening.
[2019-11-03 16:52] VITALS: BP 191/97; TEMP 98.7; O2SAT 94
== END 2019-11-03 16:38 | disposition home or self-care (01) ==
LOC: ER 09:59
DX: E10.43 Type 1 diabetes mellitus with diabetic autonomic (poly)neuropathy (principal); K31.84 Gastroparesis; Z79.4 Long term (current) use of insulin; E86.0 Dehydration; E87.6 Hypokalemia; I10 Essential (primary) hypertension; F17.200 Nicotine dependence, unspecified, uncomplicated
CPT/HCPCS: 36415; 74019; 80053; 82009; 82150; 82550; 82553; 83605; 83690; 83735; 83880; 84484; 85025; 93005; A4216; J2270; J2550; J3480

== ENCOUNTER 2019-12-07 08:00 | Emergency (ER) | payer MEDICARE ==
[2019-12-07] MEDS ORDERED: SODIUM CHLORIDE 0.9% 50ML 50 ML ONE (08:18)
[2019-12-07] MEDS ORDERED: PROMETHAZINE HCL INJ 25 MG/ML VIAL ONE (08:18)
[2019-12-07] MEDS: ONDANSETRON ODT 8 MG TAB SL ONE (08:26)
[2019-12-07] MEDS: PROMETHAZINE HCL INJ 25 MG in SODIUM CHLORIDE 0.9% 50ML 50 ML IVPB ONE (08:26)
[2019-12-07] MEDS: SODIUM CHLORIDE 0.9% 1000ML 500 ML IVS ONE (08:27)
[2019-12-07] MEDS: SCOPOLAMINE PATCH 1.5MG 1 EA TD ONE (08:35)
--- NOTE | 2019-12-07 09:33 | RAD ---
EXAM DESCRIPTION: Abdomen Series CLINICAL HISTORY: 39 years Male, nv 4 hours COMPARISON: November 02, 2021 FINDINGS: Two views were obtained including an upright view of the chest and upper abdomen demonstrating no free abdominal air and clear lung bases without significant pleural effusions. The supine view of the abdomen demonstrates a small amount of right colonic and rectal gas with a relatively gasless abdomen otherwise. Fluid-filled loops of bowel or the possibility of abdominal ascites should be considered. The pattern is not strongly suggest a bowel obstruction. No evidence of fecal impaction or colonic distention noted. IMPRESSION: 1. Essentially clear lung lemus with no evidence of free abdominal air or significant air-fluid levels in the upper abdomen on the upright view. 2. Paucity of gas within the abdomen with a small amount of right colonic and rectal gas noted. The possibility of either fluid-filled loops of bowel or abdominal ascites should be considered. The pattern does not appear to represent an obstruction. Electronically signed by: Bandar Mcnair MD 12/07/2019 9:31 AM CDT
[2019-12-07] MEDS: METOPROLOL TARTRATE INJ 5 MG/5 ML VIAL IV ONE (09:34)
[2019-12-07] MEDS: MORPHINE SULFATE INJ 10 MG/ML VIAL IV ONE (09:59)
[2019-12-07] MEDS: cloNIDine HCL 0.1 MG TAB PO ONE (10:47)
--- NOTE | 2019-12-07 11:47 | ED.PDOC ---
History of Present Illness - General Chief Complaint: GI Problem Stated Complaint: n/v abd pain,DM Time Seen by Provider: 12/07/19 08:03 Source: patient Exam Limitations: no limitations - History of Present Illness Initial Comments: The patient is a 39-year-old male presented emergency room secondary to a episode of his recurrent cyclical nausea and vomiting. His scopolamine patch apparently fell off last night and within about 4 hours he was vomiting again. He had taken some of his Phenergan and Zofran. Blood sugar was 212 upon arrival here. He has been dry heaving since about 5 AM. He is due for dialysis today. No fevers. Nothing unusual about this cycle for him in comparison to previous episodes. No evidence of DKA. Timing/Duration: 4-6 hours Severity: severe Improving Factors: nothing Worsening Factors: nothing Associated Symptoms: nausea/vomiting Allergies/Adverse Reactions: Allergies NO KNOWN ALLERGY Allergy (Verified 12/07/19 08:16) Home Medications: Ambulatory Orders Atropine 1% Ophth Ladi [Isopto Atropine 1%] 1 drop LEFT_EYE BID PRN 09/08/17 Insulin Lispro [Humalog] 8 unit SC DAILY 09/08/17 Metoclopramide HCl [Metoclopramide Hydrochlor] 10 mg PO TID 09/08/17 Ondansetron [Ondansetron Odt] 4 mg SL Q6H PRN 09/08/17 prednisoLONE ACETATE 1% OPHTH [Econopred Plus] 1 drop LEFT_EYE QID PRN 09/08/17 Insulin Detemir [Levemir Pen] 20 units SUBCU BID pen 09/09/17 Meclizine HCl [Meclizine 25] 25 mg PO DAILY PRN 01/15/18 Pantoprazole Sodium 40 mg PO BID 01/15/18 Mupirocin 2 % Oint [Bactroban Oint] 1 applic TOP TID #1 tube 01/16/18 Sulfa/Trimeth 800/160 (Ds) Tab [Bactrim DS] 1 tablet PO BID #20 tab 01/16/18 Carvedilol 6.25 mg PO BID #60 tab 11/03/19 Ondansetron Odt [Zofran ODT] 4 mg PO Q8HR PRN #10 tab 11/03/19 Promethazine HCl 25 mg PO Q6H PRN #10 tab 11/03/19 Promethazine Supp [Phenergan Suppository] 12.5 mg [place] Q4HR PRN #10 sup 11/03/19 Promethazine Tab [Phenergan Tablet] 25 mg PO Q8H PRN #6 tab 11/04/19 Review of Systems - Review of Systems Constitutional: States: malaise EENTM: States: no symptoms reported Respiratory: States: no symptoms reported Cardiology: States: no symptoms reported Gastrointestinal/Abdominal: States: nausea, vomiting Genitourinary: States: no symptoms reported Musculoskeletal: States: no symptoms reported Skin: States: no symptoms reported Neurological: States: no symptoms reported Endocrine: States: no symptoms reported All other Systems: No Change from Baseline Past Medical History (General) - Patient Medical History Hx Seizures: No Hx Stroke: Yes - 2019 Hx Dementia: No Hx Asthma: Yes - child Hx of COPD: No Hx Cardiac Disorders: No Hx Congestive Heart Failure: No Hx Pacemaker: No Hx Hypertension: Yes Hx Thyroid Disease: No Hx Diabetes: Yes Hx Gastroesophageal Reflux: Yes Hx Renal Disease: Yes - stage 4 kidney failure,Dialysis Hx Cancer: No Hx of HIV: No Hx Hepatitis C: No Hx MRSA: No - Vaccination History Hx Tetanus, Diphtheria Vaccination: Yes Hx Influenza Vaccination: Yes Hx Pneumococcal Vaccination: Yes Immunizations Up to Date: Yes - Social History Hx Tobacco Use: Yes Hx Alcohol Use: No Hx Substance Use: Yes Hx Substance Use Treatment: No Hx Depression: No Hx Physical Abuse: No Hx Emotional Abuse: No Hx Suspected Abuse: No Family Medical History - Family History Mother Family History: Unknown Living Status: Still Living Hx Family Diabetes: Yes - multiple family members Hx Family Cancer: Yes - skin Physical Exam - Physical Exam General Appearance: Alert, Ill Appearing Eye Exam: bilateral normal Ears, Nose, Throat: hearing grossly normal, normal ENT inspection Neck: full range of motion, supple Respiratory: lungs clear, normal breath sounds, no respiratory distress, no accessory muscle use Cardiovascular/Chest: normal peripheral pulses, no edema, tachycardia - Mild Peripheral Pulses: radial,right: 2+, radial,left: 2+ Gastrointestinal/Abdominal: non tender, soft Rectal Exam: deferred Extremity: normal range of motion - Previous amputation, normal capillary refill 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, alert, normal mood/affect, oriented x 3 Skin Exam: normal color Comments: Vital Signs - 24 hr 12/07/19 12/07/19 12/07/19 08:11 08:16 09:01 Temperature 98.1 F 98.1 F Pulse Rate [ 110 H 104 H MONITOR] Respiratory 22 22 22 Rate Blood Pressure 231/137 228/127 [LA] O2 Sat by Pulse 99 92 L Oximetry 12/07/19 12/07/19 10:00 11:00 Temperature 98.1 F 98.1 F Pulse Rate [ 94 H 88 MONITOR] Respiratory 20 18 Rate Blood Pressure 211/119 187/104 [LA] O2 Sat by Pulse 92 L 97 Oximetry Progress - Progress Progress: 12/07/19 11:47 Patient is a 39-year-old male presented emergency room secondary to nausea and vomiting since around 5 AM this morning. The patient does have a history of gastroparesis and cyclical nausea and vomiting. He received doses of Zofran, Phenergan and the scopolamine patch was replaced. He is doing better at this point. He has received a small IV fluid bolus. He is due for dialysis today. He should either keep the appointment today or go tomorrow morning. No evidence of other acute pathology. Symptoms seem to be better controlled currently. Blood pressures were elevated secondary to inability to hold down his oral medications. He now has received a dose of Lopressor and oral clonidine and blood pressures are coming down. Keep good control of diabetes. Resume routine medications. Keep routine follow-up with primary care doctor otherwise. ER warnings are given for any acute worsening. brenda galarza [phone] - Results/Orders Results/Orders: Acute abdominal series shows no definite acute pathology. See report for details. Laboratory Tests 12/07/19 12/07/19 12/07/19 08:13 08:30 08:30 WBC 8.5 RBC 3.72 L Hgb 11.4 L Hct 33.9 L MCV 91.1 MCH 30.5 MCHC 33.5 RDW 17.0 H Plt Count 385 MPV 7.9 Absolute Neuts (auto) 6.10 Absolute Lymphs (auto) 1.40 Absolute Monos (auto) 0.80 Absolute Eos (auto) 0.20 Absolute Basos (auto) 0.10 Neutrophils % 71.1 Lymphocytes % 16.8 L Monocytes % 8.8 Eosinophils % 1.9 Basophils % 1.4 Sodium 137 Potassium 5.7 H Chloride 102 Carbon Dioxide 22 Anion Gap 18.7 H BUN 49 H Creatinine 4.95 H BUN/Creatinine Ratio 9.9 L POC Glucose 215 H Random Glucose 242 H Serum Osmolality 294.8 Calcium 9.7 Magnesium 2.0 Total Bilirubin 0.8 AST 25 ALT 27 Alkaline Phosphatase 56 Serum Total Protein 7.1 Albumin 3.4 Globulin 3.7 H Albumin/Globulin Ratio 0.9 L Amylase 49 Lipase 37 - EKG/XRAY/CT CT Ordered: No CT Interpretation Call Back: No Departure - Departure Clinical Impression: Cyclical vomiting with nausea, Gastroparesis diabeticorum Disposition: Discharge to Home or Self Care Condition: Fair Departure Forms: ED Discharge - Pt. Copy, Patient Portal Self Enrollment Instructions: DI for Gastritis Diet: diabetic diet Activity: increase activity as tolerated Referrals: DIANA SANDOVAL MD [Primary Care Provider] - 1-2 Weeks Home Medications: Ambulatory Orders Atropine 1% Ophth Ladi [Isopto Atropine 1%] 1 drop LEFT_EYE BID PRN 09/08/17 Insulin Lispro [Humalog] 8 unit SC DAILY 09/08/17 Metoclopramide HCl [Metoclopramide Hydrochlor] 10 mg PO TID 09/08/17 Ondansetron [Ondansetron Odt] 4 mg SL Q6H PRN 09/08/17 prednisoLONE ACETATE 1% OPHTH [Econopred Plus] 1 drop LEFT_EYE QID PRN 09/08/17 Insulin Detemir [Levemir Pen] 20 units SUBCU BID pen 09/09/17 Meclizine HCl [Meclizine 25] 25 mg PO DAILY PRN 01/15/18 Pantoprazole Sodium 40 mg PO BID 01/15/18 Mupirocin 2 % Oint [Bactroban Oint] 1 applic TOP TID #1 tube 01/16/18 Sulfa/Trimeth 800/160 (Ds) Tab [Bactrim DS] 1 tablet PO BID #20 tab 01/16/18 Carvedilol 6.25 mg PO BID #60 tab 11/03/19 Ondansetron Odt [Zofran ODT] 4 mg PO Q8HR PRN #10 tab 11/03/19 Promethazine HCl 25 mg PO Q6H PRN #10 tab 11/03/19 Promethazine Supp [Phenergan Suppository] 12.5 mg [place] Q4HR PRN #10 sup 11/03/19 Promethazine Tab [Phenergan Tablet] 25 mg PO Q8H PRN #6 tab 11/04/19 Additional Instructions: Patient is a 39-year-old male presented emergency room secondary to nausea and vomiting since around 5 AM this morning. The patient does have a history of gastroparesis and cyclical nausea and vomiting. He received doses of Zofran, Phenergan and the scopolamine patch was replaced. He is doing better at this point. He has received a small IV fluid bolus. He is due for dialysis today. He should either keep the appointment today or go tomorrow morning. No evidence of other acute pathology. Symptoms seem to be better controlled currently. Blood pressures were elevated secondary to inability to hold down his oral medications. He now has received a dose of Lopressor and oral clonidine and blood pressures are coming down. Keep good control of diabetes. Resume routine medications. Keep routine follow-up with primary care doctor otherwise. ER warnings are given for any acute worsening.
[2019-12-07 12:09] VITALS: BP 182/98; TEMP 98.4; O2SAT 98
== END 2019-12-07 12:00 | disposition home or self-care (01) ==
LOC: ER 08:00
DX: R11.15 Cyclical vomiting syndrome unrelated to migraine (principal); K31.84 Gastroparesis; E11.43 Type 2 diabetes mellitus with diabetic autonomic (poly)neuropathy; E11.22 Type 2 diabetes mellitus with diabetic chronic kidney disease; I12.0 Hypertensive chronic kidney disease with stage 5 chronic kidney disease or end stage renal disease; N18.6 End stage renal disease; Z86.73 Personal history of transient ischemic attack (TIA), and cerebral infarction without residual deficits; Z99.2 Dependence on renal dialysis; Z79.4 Long term (current) use of insulin; Z87.891 Personal history of nicotine dependence; R11.2 Nausea with vomiting, unspecified
CPT/HCPCS: 36415; 74019; 80053; 82150; 82948; 83690; 83735; 85025; A4216; J2270; J2550; J7030

== ENCOUNTER 2019-12-11 21:51 | Emergency (ER) | payer MEDICARE ==
--- NOTE | 2019-12-11 22:15 | ED.PDOC ---
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 Reports was just discharged from [facility] in [place] earlier today following a 4-day stay for severe nausea & vomiting from gastroparesis. His doctors there did Botox injections in his stomach with marked improvement in his sx's. 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 Shortly after getting home he reports his pants had fallen down and he bent over to pick them back up and he tripped and fell to his R side onto the ground. Reports injuries to R hip & R wrist. Reports constant severe 10/10 sharp pain to lateral R hip w/o radiation, worse with standing/walking/palpation. Also reports pain throughout R wrist, moderate, constant, worse with movement. Denies any deformities, bruising, swelling, weakness, numbness. No other injuries reported. Took Tylenol 650 mg just RETURNED GOODS RECEIVING CLERK but reports little improvement. Next dialysis is tomorrow per patient. Blood glucose levels ranging 120s-200s today, was 120 just RETURNED GOODS RECEIVING CLERK. Allergies/Adverse Reactions: Allergies NO KNOWN ALLERGY Allergy (Verified 12/07/19 08:16) Home Medications: Ambulatory Orders Atropine 1% Ophth Ladi [Isopto Atropine 1%] 1 drop LEFT_EYE BID PRN 09/08/17 Insulin Lispro [Humalog] 8 unit SC DAILY 09/08/17 Metoclopramide HCl [Metoclopramide Hydrochlor] 10 mg PO TID 09/08/17 Ondansetron [Ondansetron Odt] 4 mg SL Q6H PRN 09/08/17 prednisoLONE ACETATE 1% OPHTH [Econopred Plus] 1 drop LEFT_EYE QID PRN 09/08/17 Insulin Detemir [Levemir Pen] 20 units SUBCU BID pen 09/09/17 Meclizine HCl [Meclizine 25] 25 mg PO DAILY PRN 01/15/18 Pantoprazole Sodium 40 mg PO BID 01/15/18 Mupirocin 2 % Oint [Bactroban Oint] 1 applic TOP TID #1 tube 01/16/18 Sulfa/Trimeth 800/160 (Ds) Tab [Bactrim DS] 1 tablet PO BID #20 tab 01/16/18 Carvedilol 6.25 mg PO BID #60 tab 11/03/19 Ondansetron Odt [Zofran ODT] 4 mg PO Q8HR PRN #10 tab 11/03/19 Promethazine HCl 25 mg PO Q6H PRN #10 tab 11/03/19 Promethazine Supp [Phenergan Suppository] 12.5 mg [place] Q4HR PRN #10 sup 11/03/19 Promethazine Tab [Phenergan Tablet] 25 mg PO Q8H PRN #6 tab 11/04/19 Acetaminophen W/ Codeine [Tylenol W/ CODEINE #3] 1 ea PO Q8H PRN 5 Days #12 12/12/19 Review of Systems - Review of Systems Review of Systems: 12/11/19 22:14 as per HPI Past Medical History (General) - Patient Medical History Hx Seizures: No Hx Stroke: Yes - 2019 Hx Dementia: No Hx Asthma: Yes - child Hx of COPD: No Hx Cardiac Disorders: No Hx Congestive Heart Failure: No Hx Pacemaker: No Hx Hypertension: Yes Hx Thyroid Disease: No Hx Diabetes: Yes Hx Gastroesophageal Reflux: Yes Hx Renal Disease: Yes - stage 4 kidney failure,Dialysis Hx Cancer: No Hx of HIV: No Hx Hepatitis C: No Hx MRSA: No - Vaccination History Hx Tetanus, Diphtheria Vaccination: Yes Hx Influenza Vaccination: Yes Hx Pneumococcal Vaccination: Yes - Social History Hx Tobacco Use: Yes Hx Alcohol Use: No Hx Substance Use: Yes Hx Substance Use Treatment: No Hx Depression: No Hx Physical Abuse: No Hx Emotional Abuse: No Hx Suspected Abuse: No Family Medical History - Family History Mother Family History: Unknown Living Status: Still Living Hx Family Diabetes: Yes - multiple family members Hx Family Cancer: Yes - skin Physical Exam - Physical Exam General Appearance: Alert, Anxious, No apparent distress Eye Exam: bilateral normal Ears, Nose, Throat: hearing grossly normal, normal ENT inspection, normal pharynx Neck: non-tender, full range of motion, supple, normal inspection Respiratory: lungs clear, normal breath sounds, no respiratory distress, no accessory muscle use Cardiovascular/Chest: normal peripheral pulses, regular rate, rhythm, no edema, no gallop, no murmur Peripheral Pulses: radial,right: 2+, radial,left: 2+ Gastrointestinal/Abdominal: non tender, soft, no organomegaly Back Exam: normal inspection, no CVA tenderness, no vertebral tenderness Extremity: normal range of motion, normal inspection, normal capillary refill, pelvis stable, other - R wrist appears normal, no bony ttp, ROM normal. R hip appears normal on inspection, no rotation, moderate anterior and lateral hip ttp, strength/sensation appears grossly intact throughout Neurologic: halfway house counselor II-XII nml as tested, no motor/sensory deficits, alert, normal mood/affect, oriented x 3 Skin Exam: normal color, warm/dry Progress - Progress Progress: 12/11/19 22:16 R hip & R wrist pain -consider contusion injuries most likely. Also consider R hip frx, R wrist frx, strain/sprain. Pt's physical exam findings and reported pain level seem inconsistent. Unable to give much details about his pain, screaming in the ED. States he needs IV pain medications "like they gave me at the other hospital." I stated my concern with giving pain meds given his severe hx of gastroparesis. I offered Tramadol and he states "that will definitely make me sick. IV pain medicines don't make me sick though." Many concerns for drug-seeking behavior present. Cold packs given for pain control. -XR R hip & R wrist 12/12/19 00:31 -R hip XR revealed no acute processes. R wrist XR revealed minimal displaced fracture of the distal radius. -Sugar tong splint placed to RUE without issue. Care was taken not to compress the fistula site. -Pain much improved in ED with morphine 5 mg IM -will dc to home in good condition. F/u with ortho 5-7 days. Return warnings discussed at length Elier Tristan MD Billing #[id number] Procedures - Splinting Right Arm Hand-Made Type: orthoglass Splint: sugar-tong Pre-Proc Neuro Vasc Exam: normal Post-Proc Neuro Vasc Exam: normal Departure - Departure Clinical Impression: Contusion of right hip Qualifiers: Encounter type: initial encounter Qualified Code(s): S70.01XA - Contusion of right hip, initial encounter Distal radius fracture, right Qualifiers: Encounter type: initial encounter Fracture type: closed Fracture morphology: other extra-articular Qualified Code(s): S52.551A - Other extraarticular fracture of lower end of right radius, initial encounter for closed fracture Time of Disposition: 00:25 Disposition: Discharge to Home or Self Care Condition: Good Departure Forms: ED Discharge - Pt. Copy, Patient Portal Self Enrollment Instructions: Radius Fracture (DC) Diet: resume usual diet Activity: other - minimal use of RUE until cleared by orthopedic surgery Referrals: DIANA SANDOVAL MD [Primary Care Provider] - 1-2 Weeks Amilcar Benedict MD [Active Staff] - 1 Week Prescriptions: Acetaminophen W/ Codeine [Tylenol W/ CODEINE #3] 1 ea PO Q8H PRN 5 Days #12 PRN Reason: Pain Home Medications: Ambulatory Orders Atropine 1% Ophth Ladi [Isopto Atropine 1%] 1 drop LEFT_EYE BID PRN 09/08/17 Insulin Lispro [Humalog] 8 unit SC DAILY 09/08/17 Metoclopramide HCl [Metoclopramide Hydrochlor] 10 mg PO TID 09/08/17 Ondansetron [Ondansetron Odt] 4 mg SL Q6H PRN 09/08/17 prednisoLONE ACETATE 1% OPHTH [Econopred Plus] 1 drop LEFT_EYE QID PRN 09/08/17 Insulin Detemir [Levemir Pen] 20 units SUBCU BID pen 09/09/17 Meclizine HCl [Meclizine 25] 25 mg PO DAILY PRN 01/15/18 Pantoprazole Sodium 40 mg PO BID 01/15/18 Mupirocin 2 % Oint [Bactroban Oint] 1 applic TOP TID #1 tube 01/16/18 Sulfa/Trimeth 800/160 (Ds) Tab [Bactrim DS] 1 tablet PO BID #20 tab 01/16/18 Carvedilol 6.25 mg PO BID #60 tab 11/03/19 Ondansetron Odt [Zofran ODT] 4 mg PO Q8HR PRN #10 tab 11/03/19 Promethazine HCl 25 mg PO Q6H PRN #10 tab 11/03/19 Promethazine Supp [Phenergan Suppository] 12.5 mg [place] Q4HR PRN #10 sup 11/03/19 Promethazine Tab [Phenergan Tablet] 25 mg PO Q8H PRN #6 tab 11/04/19 Acetaminophen W/ Codeine [Tylenol W/ CODEINE #3] 1 ea PO Q8H PRN 5 Days #12 12/12/19 Additional Instructions: Keep the splint on at all times except for dialysis regimens it may briefly be removed while wrist is kept still until the dialysis is complete. Do not allow the splint to get wet. Check your AV fistula often by palpating for the "thrill" sensation of blood pulsing through it. If at any point you do not feel an adequate pulse through the fistula, immediately remove the TESSA wrap and come to the ED. Continue taking Tylenol 650 mg every 6 hours as needed for pain. You may take Tylenol #3 for breakthrough pain, but be advised this medication can cause exacerbation of gastroparesis symptoms. Follow up with orthopedic surgery clinic in 5-7 days.
--- NOTE | 2019-12-11 22:44 | RAD ---
EXAM DESCRIPTION: Wrist,Right 3 Views CLINICAL HISTORY: 39 years Male, ground level fall, R wrist pain COMPARISON: None. FINDINGS/IMPRESSION: Questionable minimally displaced fracture of the distal radius. Joint spaces are preserved. Dorsal wrist swelling Advanced vascular calcifications. Electronically signed by: Reji Miller DO 12/11/2019 10:42 PM CDT
--- NOTE | 2019-12-11 22:45 | RAD ---
EXAM DESCRIPTION: Hip,Right 2 Views CLINICAL HISTORY: 39 years Male, ground level fall, R hip pain COMPARISON: None. FINDINGS/IMPRESSION: No fracture or dislocation. Joint spaces are preserved. Mild degenerative changes of the hip joint. Bone mineralization is within normal limits. Soft tissues are unremarkable. Vascular calcifications. Electronically signed by: Reji Miller DO 12/11/2019 10:44 PM CDT
[2019-12-11] MEDS ORDERED: MORPHINE SULFATE INJ 10 MG/ML VIAL IM ONE (22:54)
[2019-12-12 01:20] VITALS: BP 180/95; TEMP 98.4; O2SAT 95
== END 2019-12-12 01:05 | disposition home or self-care (01) ==
LOC: ER 21:51
DX: S70.01XA Contusion of right hip, initial encounter (principal); S52.551A Other extraarticular fracture of lower end of right radius, initial encounter for closed fracture; E10.22 Type 1 diabetes mellitus with diabetic chronic kidney disease; I12.9 Hypertensive chronic kidney disease with stage 1 through stage 4 chronic kidney disease, or unspecified chronic kidney disease; N18.4 Chronic kidney disease, stage 4 (severe); R11.2 Nausea with vomiting, unspecified; Z86.73 Personal history of transient ischemic attack (TIA), and cerebral infarction without residual deficits; Z87.891 Personal history of nicotine dependence; Z99.2 Dependence on renal dialysis; W19.XXXA Unspecified fall, initial encounter; Y92.009 Unspecified place in unspecified non-institutional (private) residence as the place of occurrence of the external cause
CPT/HCPCS: 73110; 73502; J2270

== ENCOUNTER → 2019-12-14 | Outpatient (CLI) | payer MEDICARE ==
--- NOTE | 2019-12-14 08:05 | RAD ---
EXAM DESCRIPTION: Wrist,Right 3 Views CLINICAL HISTORY: 39 years, Male, PAIN IN RIGHT WRIST COMPARISON: December 11, 2019 TECHNIQUE: Three views right wrist FINDINGS: Extensive vascular calcification involving the distal forearm wrist and hand noted. The bones are normally mineralized. A very subtle nondisplaced fracture of the distal radius in essentially anatomic alignment is present. No abnormal angulation is noted. No definite fracture of the distal radius evident. The carpal navicular and lunate are normal in alignment. IMPRESSION: 1. Nondisplaced transverse fracture of the distal radius in essentially anatomic alignment. No significant displacement or angulation noted. 2. Intact ulna with no evidence of carpal dislocation or fracture. Electronically signed by: Bandar Mcnair MD 12/14/2019 8:04 AM CDT
--- NOTE | 2019-12-14 08:14 | RAD ---
EXAM DESCRIPTION: Hip,Right 2 Views CLINICAL HISTORY: PAIN IN RIGHT HIP COMPARISON: December 11, 2019 TECHNIQUE: AP/frog leg lateral FINDINGS: Deformity of the right femoral head and neck tach most consistent with cam-type femoral acetabular dysplasia is noted. There is a subtle nondisplaced fracture at the head neck junction without significant foreshortening or malalignment. Slight step-off in the cortex is in a subtle lucency across the femoral neck on the frog-leg view noted. Extensive vascular calcification again seen. The acetabulum appears intact. Compared to more remote abdominal series examinations in October and early December 2019 definite change in the appearance of the femoral head and neck region is present. IMPRESSION: 1. 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 No significant foreshortening noted. Minimal medial rotation of the femoral head evident. 2. Intact acetabulum superior and inferior pubic rami with extensive vascular calcification suggesting diabetes or arteriopathy. Electronically signed by: Bandar Mcnair MD 12/14/2019 8:12 AM CDT
== END ==
LOC: RAD 07:44
PROVIDERS: ATTEND Orthopaedic Surgery
DX: S52.591A Other fractures of lower end of right radius, initial encounter for closed fracture (principal); S72.044A Nondisplaced fracture of base of neck of right femur, initial encounter for closed fracture; M24.851 Other specific joint derangements of right hip, not elsewhere classified; I70.201 Unspecified atherosclerosis of native arteries of extremities, right leg

== ENCOUNTER → 2019-12-28 | Outpatient (CLI) | payer OTHER ==
--- NOTE | 2019-12-28 10:33 | RAD ---
EXAM DESCRIPTION: Wrist,Right 3 Views CLINICAL HISTORY: 39 years Male, CLOSED FRACTURE OF DISTAL END OF RADIUS RIGHT COMPARISON: 12/14/2019. FINDINGS: The visualized bones are well-mineralized. Some interval healing of the distal radius fracture. There is persistent soft tissue swelling of the wrist. Atherosclerotic calcifications of the visualized wrist. IMPRESSION: Some interval healing of the distal radius fracture. Electronically signed by: Michelle Thurston MD 12/28/2019 10:32 AM CDT
--- NOTE | 2019-12-28 10:34 | RAD ---
EXAM DESCRIPTION: Hip,Right 2 Views CLINICAL HISTORY: 39 years Male, CLOSED FRACTURE OF NECK OF FEMUR RIGHT COMPARISON: Radiographs dated 12/14/2019. FINDINGS: The visualized bones are well-mineralized. Again identified is a subcapital fracture of the right femur with mildly increased distraction of the fracture fragments compared to prior examination. The soft tissues appear grossly unremarkable. IMPRESSION: Again identified is a subcapital fracture of the right femur with mildly increased distraction of the fracture fragments compared to prior examination. Electronically signed by: Michelle Thurston MD 12/28/2019 10:33 AM CDT
== END ==
LOC: RAD 10:01
PROVIDERS: ATTEND Orthopaedic Surgery
DX: S52.514D Nondisplaced fracture of right radial styloid process, subsequent encounter for closed fracture with routine healing (principal); S72.001D Fracture of unspecified part of neck of right femur, subsequent encounter for closed fracture with routine healing

== ENCOUNTER 2020-03-11 22:19 | Emergency (ER) | payer OTHER ==
[2020-03-11] MEDS ORDERED: SODIUM CHLORIDE 0.9% (FLUSH) 10 ML SYG IV PRN (22:25)
--- NOTE | 2020-03-11 22:27 | ED.PDOC ---
History of Present Illness - General Chief Complaint: Chest Pain/NV Time Seen by Provider: 03/11/20 22:25 Source: patient, snf records - History of Present Illness Initial Comments: 39 yo male with PMH of HTN, DM1, gastroparesis, ESRD on HD (TThSa), s/p R TKA who is bib EMS from [facility] for cc of shortness of breath. Onset rapidly this evening, [place] reported SpO2 86% on RA at [place] as well as severe HTN, on arrival here 83% on RA, improved to >95% on 3 L NC. Pt reports moderate severity, worse with exertion, improved with rest and supplemental O2. Also reports new onset chest pain this evening, located to center of chest, no radiation, constant, 9/10 severity, unable to characterize, unknown exacerbating/alleviating factors. Also reports constant 8/10 diffuse abdominal pain, frequent dry cough, worsening swelling of BL LE's, and RUE. Reports last dialyzed 2 days ago and due again tomorrow. [place] reported pt tested positive for COVID-19 2 weeks ago. Pt states he has been w/o any acute symptoms until now. Denies any fevers, chills, n/v/d, dysuria/hematuria, sore throat, headache. Does report some body aches. 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 Has been on HD for 1 year now, has RUE AV fistula. Still urinates ~x1 per day. Allergies/Adverse Reactions: Allergies NO KNOWN ALLERGY Allergy (Verified 12/07/19 08:16) Home Medications: Ambulatory Orders Atropine 1% Ophth Ladi [Isopto Atropine 1%] 1 drop LEFT_EYE BID PRN 09/08/17 Insulin Lispro [Humalog] 8 unit SC DAILY 09/08/17 Metoclopramide HCl [Metoclopramide Hydrochlor] 10 mg PO TID 09/08/17 Ondansetron [Ondansetron Odt] 4 mg SL Q6H PRN 09/08/17 prednisoLONE ACETATE 1% OPHTH [Econopred Plus] 1 drop LEFT_EYE QID PRN 09/08/17 Insulin Detemir [Levemir Pen] 20 units SUBCU BID pen 09/09/17 Meclizine HCl [Meclizine 25] 25 mg PO DAILY PRN 01/15/18 Pantoprazole Sodium 40 mg PO BID 01/15/18 Mupirocin 2 % Oint [Bactroban Oint] 1 applic TOP TID #1 tube 01/16/18 Sulfa/Trimeth 800/160 (Ds) Tab [Bactrim DS] 1 tablet PO BID #20 tab 01/16/18 Carvedilol 6.25 mg PO BID #60 tab 11/03/19 Ondansetron Odt [Zofran ODT] 4 mg PO Q8HR PRN #10 tab 11/03/19 Promethazine HCl 25 mg PO Q6H PRN #10 tab 11/03/19 Promethazine Supp [Phenergan Suppository] 12.5 mg [place] Q4HR PRN #10 sup 11/03/19 Promethazine Tab [Phenergan Tablet] 25 mg PO Q8H PRN #6 tab 11/04/19 Acetaminophen W/ Codeine [Tylenol W/ CODEINE #3] 1 ea PO Q8H PRN 5 Days #12 12/12/19 Review of Systems - Review of Systems Review of Systems: 03/11/20 23:21 as per HPI All other Systems: Reviewed and Negative Past Medical History (General) - Patient Medical History Hx Seizures: No Hx Stroke: Yes - 2019 Hx Dementia: No Hx Asthma: Yes - child Hx of COPD: No Hx Cardiac Disorders: No Hx Congestive Heart Failure: No Hx Pacemaker: No Hx Hypertension: Yes Hx Thyroid Disease: No Hx Diabetes: Yes Hx Gastroesophageal Reflux: Yes Hx Renal Disease: Yes - stage 4 kidney failure,Dialysis Hx Cancer: No Hx of HIV: No Hx Hepatitis C: No Hx MRSA: No - Vaccination History Hx Tetanus, Diphtheria Vaccination: Yes Hx Influenza Vaccination: Yes Hx Pneumococcal Vaccination: Yes - Social History Hx Tobacco Use: Yes Hx Alcohol Use: No Hx Substance Use: Yes Hx Substance Use Treatment: No Hx Depression: No Hx Physical Abuse: No Hx Emotional Abuse: No Hx Suspected Abuse: No Family Medical History - Family History Mother Family History: Unknown Living Status: Still Living Hx Family Diabetes: Yes - multiple family members Hx Family Cancer: Yes - skin Physical Exam - Physical Exam General Appearance: Alert, No apparent distress Eye Exam: bilateral normal Ears, Nose, Throat: normal ENT inspection Neck: non-tender, full range of motion, supple, normal inspection Respiratory: chest non-tender, no respiratory distress, no accessory muscle use, rales - Bibasilar Cardiovascular/Chest: normal peripheral pulses, no JVD, no murmur, tachycardia Peripheral Pulses: radial,right: 2+, radial,left: 2+ Gastrointestinal/Abdominal: soft, tenderness - generalized, moderate, no guarding or rebound, other - moderately distended Back Exam: normal inspection, no CVA tenderness, no vertebral tenderness Extremity: normal range of motion, non-tender, pedal edema - 2+ BL LE pitting edema, s/p L AKA, RUE 2+ pitting edema throughout, strong AV fistula palpable thrill to R forearm Neurologic: rehab nurse II-XII nml as tested, no motor/sensory deficits, alert, normal mood/affect, oriented x 3 Skin Exam: normal color, warm/dry Lymphatic: no adenopathy Progress - Progress Progress: 03/11/20 22:54 Dyspnea, chest pain -with acute hypoxia, severe range HTN -consider PNA, COVID-19, pulmonary edema, CHF, ACS, PE, other -obtain cardiac work-up, sepsis, work-up -cardiac monitoring, trial of NTG & ASA 324 mg PO 03/12/20 01:40 -Pt's BP has improved to 160s/90s and HR improved to 90s following NTG SL 0.4 mg x3, Fentanyl 50 mcg IV, and ASA 324 mg. He remains stable, chest pain improving. -CXR reveals BL interstitial infiltrates, worse on the Right concerning for BL pneumonia. -Respiratory viral panel is negative for all pathogens including COVID-19 -Labwork otherwise remarkable for WBC 11,200 with 70% segs and no bands, lactate 0.6, trop 0.02, BNP 3200, BUN 58, Cr 4.55, K 4.5, Na 132, Cl 97, bicarb 25, anion gap 10. -Findings concerning for pulmonary edema, fluid overload most likely, question also BL lower lobe pneumonia. Pt does have leukocytosis but normal lactate and is w/o fever. I have begun Vancomycin 1250 mg IV and Zosyn 2.25 g IV for empiric coverage since he is high risk with his hx of DM1 and ESRD on HD. -I discussed the patient with Dr. Gould, [facility], who accepts the patient for transfer. She requests that we give the patient a trial of Lasix 40 mg IV to help diurese some fluid off as well. As all beds are full there, pt will be transferred to a holding bed in the ED. Elier Tristan MD Billing #[id number] 03/11/20 22:25 IV Care:Saline Lock per Protoc QSHIFT Telemetry .ONCE Sodium Chloride 0.9% (Flush) [Saline Flush Syringe] 10 ml IV PRN PRN Pulse Oximetry Assessment DAILY 03/11/20 22:26 UA [URINALYSIS] Stat 03/11/20 22:30 EKG STAT 03/12/20 00:49 Piperacillin/Tazobactam [Zosyn] 2.25 gm Sodium Chloride 0.9% 50Ml [NS 50ml] 50 ml IVPB ONCE Vancomycin HCl Inj 1,000 mg Vancomycin HCl Inj 250 mg Sodium Chloride 0.9% 250Ml [NS 250ml] 250 ml IVPB ONCE 03/12/20 01:22 TROPONIN-I Stat EKG Assessment ONCE 03/12/20 01:28 BLOOD CULTURE Stat 03/12/20 01:30 EKG STAT 03/12/20 09:00 Pulse Ox Daily Laboratory Results - last 24 hr 03/11/20 03/11/20 03/11/20 22:30 22:30 22:37 WBC 11.2 H RBC 2.73 L Hgb 8.7 L Hct 25.9 L MCV 94.8 H MCH 32.0 H MCHC 33.8 RDW 20.7 H Plt Count 394 MPV 8.1 Absolute Neuts (auto) 7.90 H Absolute Lymphs (auto) 1.90 Absolute Monos (auto) 1.00 H Absolute Eos (auto) 0.30 Absolute Basos (auto) 0.10 Neutrophils % 70.7 Lymphocytes % 16.9 L Monocytes % 9.1 H Eosinophils % 2.4 Basophils % 0.9 Normal RBC Morphology Stain quality accept D-Dimer, Quantitative 984.0 H* Sodium Potassium Chloride Carbon Dioxide Anion Gap BUN Creatinine BUN/Creatinine Ratio Random Glucose Serum Osmolality Lactic Acid Calcium Total Bilirubin AST ALT Alkaline Phosphatase Troponin I C-Reactive Protein 0.8 B-Natriuretic Peptide Serum Total Protein Albumin Globulin Albumin/Globulin Ratio 03/11/20 03/11/20 03/11/20 22:37 22:37 22:37 WBC RBC Hgb Hct MCV MCH MCHC RDW Plt Count MPV Absolute Neuts (auto) Absolute Lymphs (auto) Absolute Monos (auto) Absolute Eos (auto) Absolute Basos (auto) Neutrophils % Lymphocytes % Monocytes % Eosinophils % Basophils % Normal RBC Morphology D-Dimer, Quantitative Sodium 132 L Potassium 4.5 Chloride 97 L Carbon Dioxide 25 Anion Gap 14.5 BUN 58 H Creatinine 4.55 H BUN/Creatinine Ratio 12.7 Random Glucose 161 H Serum Osmolality 284.2 Lactic Acid 0.6 Calcium 8.7 Total Bilirubin 0.5 AST 18 ALT 19 Alkaline Phosphatase 77 Troponin I 0.02 C-Reactive Protein B-Natriuretic Peptide 3180.0 H* Serum Total Protein 6.2 L Albumin 2.9 L Globulin 3.3 Albumin/Globulin Ratio 0.9 L - EKG/XRAY/CT EKG: Sinus, Tachy - HR 109, no ST elevs or q waves, axis normal, intervals normal, compared to 11/03/2019 EKG sinus tach is new and prolonged QT interval now resolved XRAY: chest - BL lower lobe interstitial infiltrates concerning for PNA, worse on the R, per my read Departure - Departure Clinical Impression: Hypoxia, COVID-19, Anasarca, Hypertensive urgency Pneumonia Qualifiers: Pneumonia type: due to unspecified organism Laterality: bilateral Lung location: lower lobe of lung Qualified Code(s): J18.9 - Pneumonia, unspecified organism Pulmonary edema Qualifiers: Chronicity: acute Qualified Code(s): J81.0 - Acute pulmonary edema Time of Disposition: 01:49 Disposition: Transfer to Hospital Condition: Poor Departure Forms: ED Discharge - Pt. Copy, Patient Portal Self Enrollment Instructions: DI for Chest Pain Referrals: DIANA SANDOVAL MD [Primary Care Provider] - 1-2 Weeks Home Medications: Ambulatory Orders Atropine 1% Ophth Ladi [Isopto Atropine 1%] 1 drop LEFT_EYE BID PRN 09/08/17 Insulin Lispro [Humalog] 8 unit SC DAILY 09/08/17 Metoclopramide HCl [Metoclopramide Hydrochlor] 10 mg PO TID 09/08/17 Ondansetron [Ondansetron Odt] 4 mg SL Q6H PRN 09/08/17 prednisoLONE ACETATE 1% OPHTH [Econopred Plus] 1 drop LEFT_EYE QID PRN 09/08/17 Insulin Detemir [Levemir Pen] 20 units SUBCU BID pen 09/09/17 Meclizine HCl [Meclizine 25] 25 mg PO DAILY PRN 01/15/18 Pantoprazole Sodium 40 mg PO BID 01/15/18 Mupirocin 2 % Oint [Bactroban Oint] 1 applic TOP TID #1 tube 01/16/18 Sulfa/Trimeth 800/160 (Ds) Tab [Bactrim DS] 1 tablet PO BID #20 tab 01/16/18 Carvedilol 6.25 mg PO BID #60 tab 11/03/19 Ondansetron Odt [Zofran ODT] 4 mg PO Q8HR PRN #10 tab 11/03/19 Promethazine HCl 25 mg PO Q6H PRN #10 tab 11/03/19 Promethazine Supp [Phenergan Suppository] 12.5 mg [place] Q4HR PRN #10 sup 11/03/19 Promethazine Tab [Phenergan Tablet] 25 mg PO Q8H PRN #6 tab 11/04/19 Acetaminophen W/ Codeine [Tylenol W/ CODEINE #3] 1 ea PO Q8H PRN 5 Days #12 12/12/19 Transfer to Outside Facility - Transfer Information Decision to Transfer Date: 03/12/20 Decision to Transfer Time: 01:49 Reason for Transfer: specialized care not available - inpatient hemodialysis, nephrology Accepting Provider:: Dr. Gould Accepting Facility: [facility]
--- NOTE | 2020-03-11 22:55 | RAD ---
EXAM: Chest,1 View CLINICAL INDICATION: Chest pain COMPARISON: 09/18/2019 FINDINGS: A single view of the chest was obtained. The heart size is normal. The pulmonary vascularity is unremarkable. Bibasilar infiltrates are noted suspicious for pneumonia. The lungs are otherwise clear. There is no pneumothorax. IMPRESSION: Bibasilar infiltrates, consistent with pneumonia. Electronically signed by: Papo Faustin MD 03/11/2020 10:53 PM CDT
[2020-03-11] MEDS ORDERED: ASPIRIN (CHEWABLE) 81 MG TAB PO ONE (23:11)
[2020-03-11] MEDS ORDERED: NITROGLYCERIN 0.4 MG 25 EA TAB SL ONE ×2 (23:11→23:46)
[2020-03-12] MEDS ORDERED: NITROGLYCERIN 0.4 MG 25 EA TAB SL ONE (00:49)
[2020-03-12] MEDS ORDERED: fentaNYL CITRATE INJ 50 MCG/ML AMP IV ONE (00:49)
[2020-03-12] MEDS ORDERED: VANCOMYCIN HCL INJ 1,000 MG, VANCOMYCIN HCL INJ 250 MG in SODIUM CHLORIDE 0.9% 250ML 25... IVPB ONE (00:49)
[2020-03-12] MEDS ORDERED: PIPERACILLIN/TAZOBACTAM 2.25 GM in SODIUM CHLORIDE 0.9% 50ML 50 ML IVPB ONE (00:49)
[2020-03-12] MEDS ORDERED: FUROSEMIDE INJ 40 MG/4 ML VIAL IV ONE (01:35)
[2020-03-12 02:00] VITALS: BP 178/98; O2SAT 93
[2020-03-12 02:27] VITALS: TEMP 97.1
== END 2020-03-12 02:31 | disposition short-term general hospital (02) ==
LOC: ER 22:19
DX: U07.1 COVID-19 (principal); J12.89 Other viral pneumonia; R09.02 Hypoxemia; I16.0 Hypertensive urgency; R60.1 Generalized edema; J81.0 Acute pulmonary edema; R00.0 Tachycardia, unspecified; I45.81 Long QT syndrome; E10.22 Type 1 diabetes mellitus with diabetic chronic kidney disease; I12.9 Hypertensive chronic kidney disease with stage 1 through stage 4 chronic kidney disease, or unspecified chronic kidney disease; N18.4 Chronic kidney disease, stage 4 (severe); K21.9 Gastro-esophageal reflux disease without esophagitis; Z99.2 Dependence on renal dialysis; Z86.73 Personal history of transient ischemic attack (TIA), and cerebral infarction without residual deficits; Z79.899 Other long term (current) drug therapy; Z79.4 Long term (current) use of insulin; Z87.891 Personal history of nicotine dependence
CPT/HCPCS: 36415; 71045; 80053; 83605; 83880; 84484; 85025; 85379; 86140; 87040; 87635; 93005; A4216; J1940; J2543; J3010; J3370; J7050

== ENCOUNTER 2020-03-23 15:55 | Emergency (ER) | payer MEDICARE, OTHER ==
[2020-03-23] MEDS ORDERED: SODIUM CHLORIDE 0.9% (FLUSH) 10 ML SYG IV PRN (15:57)
--- NOTE | 2020-03-23 15:59 | ED.PDOC ---
History of Present Illness - General Time Seen by Provider: 03/23/20 15:57 Source: patient, EMS, intermediate records - History of Present Illness Initial Comments: 39-year-old male with past medical history of hypertension, diabetes, gastroparesis, end-stage renal disease on hemodialysis (MWF) who was brought in by EMS from [facility] for chief complaint of shortness of breath. Onset this morning with rapid worsening, rates 8/10 severity, constant, worse with exertion/activity, associated also with chest pain in the center of his chest which is also 8/10 in severity, no medications taken for relief. EMS noted on arrival initial SPO2 of 88% on room air, which improved with nasal cannula oxygen. On arrival to ED patient developed new onset nausea with several episodes of nonbloody nonbilious emesis. He reports feeling hot but denies chills. Denies abdominal pain, diarrhea, sore throat. Does report nonproductive cough which began this morning as well as leg swelling. Patient was last dialyzed yesterday. Patient was recently seen here 2 weeks ago with similar symptoms and found to have pulmonary edema and transferred to [facility] at that time for dialysis. Patient did test positive last month for COVID-19 but tested neg 2 weeks ago. Allergies/Adverse Reactions: Allergies NO KNOWN ALLERGY Allergy (Verified 12/07/19 08:16) Home Medications: Ambulatory Orders Atropine 1% Ophth Ladi [Isopto Atropine 1%] 1 drop LEFT_EYE BID PRN 09/08/17 Insulin Lispro [Humalog] 8 unit SC DAILY 09/08/17 Metoclopramide HCl [Metoclopramide Hydrochlor] 10 mg PO TID 09/08/17 Ondansetron [Ondansetron Odt] 4 mg SL Q6H PRN 09/08/17 prednisoLONE ACETATE 1% OPHTH [Econopred Plus] 1 drop LEFT_EYE QID PRN 09/08/17 Insulin Detemir [Levemir Pen] 20 units SUBCU BID pen 09/09/17 Meclizine HCl [Meclizine 25] 25 mg PO DAILY PRN 01/15/18 Pantoprazole Sodium 40 mg PO BID 01/15/18 Mupirocin 2 % Oint [Bactroban Oint] 1 applic TOP TID #1 tube 01/16/18 Sulfa/Trimeth 800/160 (Ds) Tab [Bactrim DS] 1 tablet PO BID #20 tab 01/16/18 Carvedilol 6.25 mg PO BID #60 tab 11/03/19 Ondansetron Odt [Zofran ODT] 4 mg PO Q8HR PRN #10 tab 11/03/19 Promethazine HCl 25 mg PO Q6H PRN #10 tab 11/03/19 Promethazine Supp [Phenergan Suppository] 12.5 mg ND Q4HR PRN #10 sup 11/03/19 Promethazine Tab [Phenergan Tablet] 25 mg PO Q8H PRN #6 tab 11/04/19 Acetaminophen W/ Codeine [Tylenol W/ CODEINE #3] 1 ea PO Q8H PRN 5 Days #12 12/12/19 Review of Systems - Review of Systems Review of Systems: 03/23/20 16:11 as per HPI All other Systems: Reviewed and Negative Past Medical History (General) - Patient Medical History Hx Seizures: No Hx Stroke: Yes - 2019 Hx Dementia: No Hx Asthma: Yes - child Hx of COPD: No Hx Cardiac Disorders: No Hx Congestive Heart Failure: No Hx Pacemaker: No Hx Hypertension: Yes Hx Thyroid Disease: No Hx Diabetes: Yes Hx Gastroesophageal Reflux: Yes Hx Renal Disease: Yes - stage 4 kidney failure,Dialysis Hx Cancer: No Hx of HIV: No Hx Hepatitis C: No Hx MRSA: No - Vaccination History Hx Tetanus, Diphtheria Vaccination: Yes Hx Influenza Vaccination: Yes Hx Pneumococcal Vaccination: Yes - Social History Hx Tobacco Use: Yes Hx Alcohol Use: No Hx Substance Use: Yes Hx Substance Use Treatment: No Hx Depression: No Hx Physical Abuse: No Hx Emotional Abuse: No Hx Suspected Abuse: No Family Medical History - Family History Mother Family History: Unknown Living Status: Still Living Hx Family Diabetes: Yes - multiple family members Hx Family Cancer: Yes - skin Physical Exam - Physical Exam General Appearance: Alert, No apparent distress, Restless Eye Exam: bilateral normal Ears, Nose, Throat: hearing grossly normal, normal ENT inspection, normal pharynx Neck: non-tender, full range of motion, supple, normal inspection Respiratory: chest non-tender, no respiratory distress, no accessory muscle use, rales - Bilateral lung bases Cardiovascular/Chest: normal peripheral pulses, regular rate, rhythm, no JVD, no murmur Peripheral Pulses: radial,right: 2+, radial,left: 2+ Gastrointestinal/Abdominal: non tender, soft, no organomegaly Back Exam: normal inspection, no CVA tenderness Extremity: normal range of motion, non-tender, normal inspection, pedal edema - 1+ bilateral lower extremity edema, other - Status post right AKA Neurologic: chick grader II-XII nml as tested, no motor/sensory deficits, alert, normal mood/affect, oriented x 3 Skin Exam: diaphoresis, pallor Progress - Progress Progress: 03/23/20 16:14 Dyspnea, chest pain -Suspect pulmonary edema/fluid overload, consider also ACS, pneumonia, PE, gastroenteritis, COVID-19, hypertensive urgency, sepsis, DKA, other -Vitals with hypoxia which is improved with nasal cannula oxygen, blood pressure markedly elevated 210s/110s on arrival, afebrile -Obtain cardiac work-up, sepsis work-up, Zofran 4 mg IV, labetalol 20 mg IV, nitroglycerin as needed, baby aspirin 03/23/20 17:49 -Patient reports little improvement in chest pain with initial treatment. Blood pressure is improved to 180/90s, remainder vitals stable. Nausea seems improved. X-ray imaging of the chest reveals bilateral perihilar and basilar infiltrates which I suspect is due to pulmonary edema/fluid overload. Lab results reveal BNP level greater than 4000, which is higher than usual for the patient. Serum WBC & lactate wnl, serum ketones negative, bicarb 31, anion gap 11 - does not appear c/w DKA. Otherwise his lab results reveal hyperglycemia and borderline hyperkalemia. Otherwise largely unchanged from chronic. -I have spoken with Dr. Nina, nephrology, at [facility] who advises to transfer the patient to the ED there for emergent hemodialysis. Dr. Flores is the accepting physician in the ED. -Will give Fentanyl 50 mcg IV, Lasix 60 mg IV, and Labetalol 10 mg IV for continued pain/HTN/fluid overload. Regular insulin 5 units IV for hyperglycemia and borderline hyperkalemia (5.1). COVID-19 testing pending. Elier Tristan MD Billing #[id number] 03/23/20 15:57 Sodium Chloride 0.9% (Flush) [Saline Flush Syringe] 10 ml IV PRN PRN 03/23/20 15:58 Pulse Oximetry Assessment DAILY 03/23/20 16:00 EKG STAT 03/23/20 16:07 URINALYSIS Stat 03/23/20 16:25 RESPIRATORY PANEL 2 Stat 03/24/20 09:00 Pulse Ox Daily Laboratory Results - last 24 hr 03/23/20 03/23/20 03/23/20 15:40 15:40 15:40 WBC 9.1 RBC 3.25 L Hgb 10.6 L Hct 31.7 L MCV 97.4 H MCH 32.6 H MCHC 33.5 RDW 20.6 H Plt Count 420 H MPV 8.2 Absolute Neuts (auto) 6.50 Absolute Lymphs (auto) 1.50 Absolute Monos (auto) 0.70 Absolute Eos (auto) 0.20 Absolute Basos (auto) 0.20 H Neutrophils % 71.0 Lymphocytes % 16.9 L Monocytes % 7.9 Eosinophils % 2.5 Basophils % 1.7 Sodium 136 Potassium 5.1 H Chloride 94 L Carbon Dioxide 31 Anion Gap 16.1 BUN 29 H Creatinine 3.02 H BUN/Creatinine Ratio 9.6 L Random Glucose 248 H Serum Osmolality 286.1 Lactic Acid Calcium 9.1 Total Bilirubin 0.7 AST 19 ALT 20 Alkaline Phosphatase 71 Troponin I 0.02 B-Natriuretic Peptide 4490.0 H* Serum Total Protein 6.4 Albumin 3.1 L Globulin 3.3 Albumin/Globulin Ratio 0.9 L Serum Ketones 03/23/20 03/23/20 15:40 16:24 WBC RBC Hgb Hct MCV MCH MCHC RDW Plt Count MPV Absolute Neuts (auto) Absolute Lymphs (auto) Absolute Monos (auto) Absolute Eos (auto) Absolute Basos (auto) Neutrophils % Lymphocytes % Monocytes % Eosinophils % Basophils % Sodium Potassium Chloride Carbon Dioxide Anion Gap BUN Creatinine BUN/Creatinine Ratio Random Glucose Serum Osmolality Lactic Acid 0.6 Calcium Total Bilirubin AST ALT Alkaline Phosphatase Troponin I B-Natriuretic Peptide Serum Total Protein Albumin Globulin Albumin/Globulin Ratio Serum Ketones Negative - EKG/XRAY/CT EKG: Sinus - NSR, HR 95, poor waveform, no ST elevs or q waves noted, right axis deviation, intervals normal, compared to 03/11/2020 EKG tachycardia appears resolved Departure - Departure Clinical Impression: Anasarca, Hyperglycemia due to type 1 diabetes mellitus, Hypertensive urgency Pulmonary edema Qualifiers: Chronicity: acute Qualified Code(s): J81.0 - Acute pulmonary edema Time of Disposition: 17:48 Disposition: Transfer to Hospital Condition: Poor Referrals: DIANA SANDOVAL MD [Primary Care Provider] - 1-2 Weeks Home Medications: Ambulatory Orders Atropine 1% Ophth Ladi [Isopto Atropine 1%] 1 drop LEFT_EYE BID PRN 09/08/17 Insulin Lispro [Humalog] 8 unit SC DAILY 09/08/17 Metoclopramide HCl [Metoclopramide Hydrochlor] 10 mg PO TID 09/08/17 Ondansetron [Ondansetron Odt] 4 mg SL Q6H PRN 09/08/17 prednisoLONE ACETATE 1% OPHTH [Econopred Plus] 1 drop LEFT_EYE QID PRN 09/08/17 Insulin Detemir [Levemir Pen] 20 units SUBCU BID pen 09/09/17 Meclizine HCl [Meclizine 25] 25 mg PO DAILY PRN 01/15/18 Pantoprazole Sodium 40 mg PO BID 01/15/18 Mupirocin 2 % Oint [Bactroban Oint] 1 applic TOP TID #1 tube 01/16/18 Sulfa/Trimeth 800/160 (Ds) Tab [Bactrim DS] 1 tablet PO BID #20 tab 01/16/18 Carvedilol 6.25 mg PO BID #60 tab 11/03/19 Ondansetron Odt [Zofran ODT] 4 mg PO Q8HR PRN #10 tab 11/03/19 Promethazine HCl 25 mg PO Q6H PRN #10 tab 11/03/19 Promethazine Supp [Phenergan Suppository] 12.5 mg ND Q4HR PRN #10 sup 11/03/19 Promethazine Tab [Phenergan Tablet] 25 mg PO Q8H PRN #6 tab 11/04/19 Acetaminophen W/ Codeine [Tylenol W/ CODEINE #3] 1 ea PO Q8H PRN 5 Days #12 12/12/19 Transfer to Outside Facility - Transfer Information Decision to Transfer Date: 03/23/20 Decision to Transfer Time: 17:48 Reason for Transfer: required specialist not available - nephrology, hemodialysis Accepting Provider:: Dr. Flores Accepting Facility: [facility] [[email or web address]]
[2020-03-23] MEDS ORDERED: ONDANSETRON INJ 4 MG/2 ML VIAL IV ONE (16:07)
[2020-03-23] MEDS ORDERED: NITROGLYCERIN 0.4 MG 25 EA TAB SL ONE ×2 (16:16→17:29)
[2020-03-23] MEDS ORDERED: ASPIRIN (CHEWABLE) 81 MG TAB PO ONE (16:16)
[2020-03-23] MEDS ORDERED: LABETALOL INJ 5 MG/ML VIAL IV ONE ×2 (16:16→17:29)
--- NOTE | 2020-03-23 16:36 | RAD ---
EXAM DESCRIPTION: Chest,1 View CLINICAL HISTORY: 39 years Male dyspnea, dialysis patient COMPARISON: 03/11/2020. FINDINGS: The cardiomediastinal silhouette appears unremarkable. There is opacity in the left perihilar region and in the bilateral lung bases. The findings could be from edema or infectious process. No large pleural effusions. No pneumothorax. IMPRESSION: There is opacity in the left perihilar region and in the bilateral lung bases. The findings could be from edema or infectious process. Follow-up is recommended. Electronically signed by: Bart Young MD 03/23/2020 4:34 PM CDT
[2020-03-23] MEDS ORDERED: fentaNYL CITRATE INJ 50 MCG/ML AMP IV ONE (17:29)
[2020-03-23] MEDS ORDERED: FUROSEMIDE INJ 40 MG/4 ML VIAL IV ONE (17:31)
[2020-03-23] MEDS ORDERED: INSULIN, REG.(HUMAN) 100 U/ML VIAL IV ONE (17:31)
[2020-03-23 19:15] VITALS: BP 196/109; TEMP 97.5; O2SAT 97
== END 2020-03-23 18:56 | disposition short-term general hospital (02) ==
LOC: ER 15:55
DX: J81.0 Acute pulmonary edema (principal); I16.0 Hypertensive urgency; E10.65 Type 1 diabetes mellitus with hyperglycemia; R60.0 Localized edema; R07.9 Chest pain, unspecified; R11.2 Nausea with vomiting, unspecified; E10.22 Type 1 diabetes mellitus with diabetic chronic kidney disease; I12.0 Hypertensive chronic kidney disease with stage 5 chronic kidney disease or end stage renal disease; N18.6 End stage renal disease; K21.9 Gastro-esophageal reflux disease without esophagitis; Z20.828 Contact with and (suspected) exposure to other viral communicable diseases; Z86.19 Personal history of other infectious and parasitic diseases; Z79.899 Other long term (current) drug therapy; Z79.4 Long term (current) use of insulin; Z99.2 Dependence on renal dialysis; Z86.73 Personal history of transient ischemic attack (TIA), and cerebral infarction without residual deficits
CPT/HCPCS: 36415; 71045; 80053; 82009; 83605; 83880; 84484; 85025; 87635; 93005; 94760; A4216; J1940; J2405; J3010

== ENCOUNTER → 2020-05-09 | Outpatient (CLI) | payer OTHER ==
--- NOTE | 2020-05-10 14:29 | NM ---
EXAM DESCRIPTION: Lung Scan, Vent/Perfusion: Nuclear Medicine. CLINICAL HISTORY: 39 years Male, HYPOXEMIA COMPARISON: Portable chest x-ray April 14. TECHNIQUE: Patient inhaled 31.4 mCi of DTPA aerosolized and gamma camera detection. Images were recorded in anterior, posterior, and bilateral anterior and posterior oblique. No immediate complications. Patient then was injected with 8.3 mCi of technetium 99m macroaggregated albumin IV with gamma camera detection images of the chest in the anterior posterior lateral and bilateral oblique projections. FINDINGS: No significant subsegmental, segmental, or lobar defects on ventilation or perfusion. Extrapulmonary sequestration of the inhaled DTPA can be seen in the stomach. Also in the lower trachea. Photopenia in the mediastinum and heart; cardiomegaly is visualized on prior chest x-rays. IMPRESSION: Radionuclide ventilation perfusion study demonstrating low probability of acute or significant pulmonary embolus. Electronically signed by: Mateo Chun MD 05/10/2020 2:27 PM CDT
== END ==
LOC: NM 10:28
PROVIDERS: ATTEND Family Medicine
DX: R09.02 Hypoxemia (principal)
CPT/HCPCS: 78582; A9567

== ENCOUNTER 2020-07-02 11:20 | Emergency (ER) | payer OTHER ==
[2020-07-02] MEDS ORDERED: FAMOTIDINE IV PREMIX 20 MG in PREMIX BAG 1 BAG IVPB ONE (11:45)
[2020-07-02] MEDS ORDERED: SODIUM CHLORIDE 0.9% (FLUSH) 10 ML SYG IV PRN (11:45)
[2020-07-02] MEDS ORDERED: PANTOPRAZOLE SODIUM IV 40 MG VIAL IV ONE (11:56)
[2020-07-02] MEDS ORDERED: ONDANSETRON INJ 4 MG/2 ML VIAL IV ONE (12:15)
[2020-07-02] MEDS ORDERED: NEOMYCIN-BACITRACIN-POLYMYXIN 0.9 GM UD TOP ONE (12:41)
[2020-07-02] MEDS ORDERED: SODIUM CHLORIDE 0.9% 500ML 500 ML IVS ONE (12:55)
--- NOTE | 2020-07-02 13:02 | RAD ---
EXAM: Chest,1 View INDICATION: 39 years Male, EMESIS, POSSIBLE GI BLEED. COMPARISON: Single view of the chest 04/14/2020 FINDINGS: Single view of the chest was performed. Heart size is within normal limits. Subtle hazy opacification in the medial right lung base. Blunting of the right costophrenic sulcus may represent tiny effusion. The left lung is clear. No pneumothorax. The osseous structures are intact. Unremarkable appearance of the visualized upper abdomen. IMPRESSION: Subtle hazy infiltrate in the medial right lung base with probable small right pleural effusion. Electronically signed by: Stacey Medley MD 07/02/2020 1:01 PM [facility]
--- NOTE | 2020-07-02 13:02 | RAD ---
EXAM DESCRIPTION: KUB CLINICAL HISTORY: 39 years Male, EMESIS, POSSIBLE GI BLEED, POSSIBLE CONSTIPATION. COMPARISON: None. Findings: 1 view(s)/radiograph(s) Location: abdomen Nonobstructive bowel gas pattern. No suspicious calcification. No acute osseous abnormalities. Soft tissues are unremarkable. Moderate stool volume. IMPRESSION: Nonobstructive bowel gas pattern. Electronically signed by: Elías Alcazar MD 07/02/2020 1:00 PM [facility]
[2020-07-02] MEDS ORDERED: POLYETHYLENE GLYCOL 3350 17 GM PCKT PO ONE (13:14)
--- NOTE | 2020-07-02 13:15 | ED.PDOC ---
History of Present Illness - General Chief Complaint: GI Problem Stated Complaint: "coffee ground emesis" Time Seen by Provider: 07/02/20 11:45 Information Source: patient, family - MOTHER PRESENT Exam Limitations: no limitations - History of Present Illness Initial Comments: 39 YO MALE, COFFEE GROUND EMESIS STARTING YESTERDAY. (NO RECTAL BLEED.) H/O DM GASTROPARESIS AND CONSTIPATION. HAS NOT HAD BM IN 2 WKS. RECENTLY ADMITTED TO [facility] FOR ORTHO REHAB FOR R FEMUR SURGERY JUN 15, 2020 IN [facility] FROM A FALL. (ALSO H/O R HIP FRX SURGERY.) VERY COMPLEX COMORBIDITIES: DIALYSIS MWF X 1 YR FOR RENAL FAILURE FROM IDDM TYPE 1. OCCASIONALLY STILL VOIDS. H/O R BKA. L DM FOOT ULCER STARTING JUN 21. MOTHER STATES HE IS NOT SEEING WOUND CARE. Abdominal Pain Onset Location: generalized abdomen Pain Radiation: no radiation Quality: cramping - NO PAIN UNLESS PALPATED. C/O N&V BUT NOT MARNIE PAIN. Timing/Duration: days - 2 DAYS. Improving Factors: nothing Worsening Factors: nothing Associated Symptoms: nausea/vomiting Review of Systems - Review of Systems Constitutional: Denies: chills, fever EENTM: States: no symptoms reported Respiratory: Denies: cough, short of breath Cardiology: Denies: chest pain, palpitations Gastrointestinal/Abdominal: States: constipation, nausea, vomiting. Denies: abdominal pain Genitourinary: Denies: dysuria, hematuria Musculoskeletal: States: no symptoms reported Skin: States: other - MOTHER ASKS US TO LOOK AT L FOOT (CURRENTLY BANDAGED). Neurological: States: no symptoms reported Endocrine: Denies: increased hunger, increased thirst Hematologic/Lymphatic: Denies: easy bleeding, easy bruising All other Systems: Reviewed and Negative Past Medical History (General) - Patient Medical History Hx Seizures: No Hx Stroke: Yes - 2019 Hx Dementia: No Hx Asthma: Yes - child Hx of COPD: No Hx Cardiac Disorders: No Hx Congestive Heart Failure: No Hx Pacemaker: No Hx Hypertension: Yes Hx Thyroid Disease: No Hx Diabetes: Yes Hx Gastroesophageal Reflux: Yes Hx Renal Disease: Yes - stage 4 kidney failure,Dialysis Hx Cancer: No Hx of HIV: No Hx Hepatitis C: No Hx MRSA: No - Vaccination History Hx Tetanus, Diphtheria Vaccination: Yes Hx Influenza Vaccination: Yes Hx Pneumococcal Vaccination: Yes - Social History Hx Tobacco Use: Yes Hx Alcohol Use: No Hx Substance Use: Yes Hx Substance Use Treatment: No Hx Depression: No Hx Physical Abuse: No Hx Emotional Abuse: No Hx Suspected Abuse: No - Activities of Daily Living [facility]/Assisted Living (if applicable):: [facility] Agency (if applicable):: None - Female History Patient is a Female of Child Bearing Age (10 -59 yrs old): No Patient : No Family Medical History - Family History Mother Family History: Unknown Living Status: Still Living Hx Family Diabetes: Yes - multiple family members Hx Family Cancer: Yes - skin Physical Exam - Physical Exam General Appearance: Alert, Unkempt Eyes, Ears, Nose, Throat Exam: PERRL/EOMI, normal ENT inspection, TMs normal, pharynx normal Neck: non-tender, full range of motion, supple Respiratory: lungs clear, normal breath sounds, no respiratory distress Cardiovascular/Chest: no murmur, tachycardia - REGULAR RHYTHM. Peripheral Pulses: 1+ Gastrointestinal/Abdominal: normal bowel sounds, soft, no organomegaly, no pulsatile mass, other - GENERALIZED TTP X ALL 6 QUADRANTS. EPIGASTRIC GREATEST TENDERNESS. NO G/R. Rectal Exam: deferred Back Exam: normal inspection, no CVA tenderness Extremity: other - RLE SURGICALLY ABSENT (BKA). L SMALL TOE SURGICALLY ABSENT (H/O AMPUTATION). LLE NTTP D/T REPORTED ADVANCED DM NEUROPATHY. L FOOT = 3 LESIONS, DRY, NON-PURULENT: 1. L HEEL BLACK, NECROTIC ESCHAR 4X4 CM. 2. L DURSUM 1X1 CM ULCER, NO PURULENCE. 3. L LATERAL 5TH MCP 1X1 CM ULCER, NON PURULENT. Neurologic: alert, oriented x 3, other - FLAT AFFECT. Skin Exam: other - L FOOT 3 ULCERS, PER EXTREMITY EXAM. Lymphatic: no adenopathy Progress - Progress Progress: 07/02/20 15:26 U/S ORDERED FOR ELEVATED BILIRUBIN, WHICH SHOWS GALLSTONES AND SLUDGE (CHOLELITHIASIS). WILL REFER TO GEN SURGERY FOR IT AND UPPER GI BLEED (MAY NEED EGD). U/S ALSO SHOWS 2.4 CM LEFT LIVER LESION (HEMANGIOMA VS CANCER). CT HEPATIC MASS PROTOCOL RECOMMENDED BUT ON DIALYSIS THUS CONTRAST CONTRAINDICATED, SO ORDERING W/O CONTRAST. 07/02/20 16:39 UPPER GI BLEED (N/V/HEMETEMESIS) - GASTROCULT POS. NEEDS ADMISSION WITH GI AND INPT DIALYSIS, THUS REFER TO LARGER HOSPITAL. GAVE IV PEPCID AND PROTONIX. NAUSEA CONTROLLED WITH ZOFRAN. COVID NEG. AMYLASE AND LIPASE NL. INR 1.56, LIKELY D/T RENAL FAILURE (IS NOT ON ANTICOAGULANTS). CBC WBC 19.6, ELEV NEUTS. N/N ANEMIA HGB 12.9. ELEV PPLATELETS 912. CMP BILI 24. ANION GAP 32, LIKELY FROM GI LOSSES BUT CHECKING SERUM KETONES W/ IDDM. SERUM KETONES MILDLY POS. U/S = GALLSTONES AND SLUDGE. WILL NEED OUTPT GEN SURGERY REFERRAL. U/S SHOWS L LIVER LESION, THUS ORDERED CT TO R/O CANCER. BUN 35, CR 4.65 (DIALYSIS) GLUC 226 (IDDM) CXR R MEDIAL BASE INFILTRATE. ELEV WBC. COVID NEG. MILD RLL PNE. AXR = CONSTIPATION. MIRALAX ORDERED. DEHYDRATION - EKG SINUS TACHY, EMESIS. GAVE 500 ML BOLUS SINCE DIALYSIS AND CHRONIC HTN. DM LEFT FOOT ULCERS X 3 - NO OSTEOMYELITIS PER XRAY. NEEDS WOUND CARE REFERRAL AND KEEP HEELS ELEVATED (BED PRESSURE SORE ON HEEL). WILL ADMIT TO LARGER HOSPITAL WITH ACUTE UPPER GI BLEED, RLL PNE (NEG COVID), DM FOOT ULCERS, DIALYSIS ESRD, AND H/O R BKA. 07/02/20 18:33 [facility] IS FULL, SO NOW TRYING OTHER THR HOSPITALS. 07/02/20 19:39 ALL [facility] ARE FULL. ALL [facility]OSPITALS ARE FULL. PROLONGED STAY FROM CONTINUING TO TRY TO FIND A HOSPITAL FOR ADMISSION, [facility] DOES NOT DO IN-PT DIALYSIS. CHECKING WITH [facility]. 07/02/20 20:23 [facility] FULL. [facility] FULL. [facility] FULL. [facility] FULL. [facility] FULL. [facility] CANNOT ACCEPT SINCE IS DIALYSIS PT. 10 HOSPITALS DENIED ACCEPTANCE DUE TO BEING ON DIVERSION FROM BEING 100% FULL. WE ARE UNABLE TO SEND VIA ER WELL SINCE IT IS CONSIDERED A TRANSFER WELL. PT HAS BEEN HEMODYNAMICALLY STABLE IN ER (NO HYPOTENSION, IN FACT HTN, NO HYPOXIA, MILD SINUS TACHYCARDIA 107) AND HAS HAD NO FURTHER EMESIS SINCE ADMISSION. NO BLEEDING SINCE GIVING PROTONIX AND PEPCID IV IN ER. THOUGH HE IS STABLE ACUTELY, I AM WORRIED ABOUT HIS LONG-TERM PROGNOSIS WITH ADVANCED IDDM COMPLICATIONS (R BKA, DIALYSIS, NEW L FOOT ULCERS, CHOLELITHIASIS, CONSTIPATION, ETC). THE PT AND MOTHER ARE UNDERSTANDABLY FRUSTRATED WITH THE INABILITY TO FIND HOSPITAL ADMISSION AND ARE LEAVING AMA AND ARE GOING TO DRIVE TO A LARGER HOSPITAL ER TO SEE IF HE IS ABLE TO RECEIVE CARE FOR HIS UPPER GI BLEED, DM FOOT ULCERS, DIALYSIS, AND OTHER NUMEROUS COMORBIDITIES. 07/02/20 20:34 - EKG/XRAY/CT EKG: Sinus, Tachy Departure - Departure Clinical Impression: Upper GI bleeding, Neutrophilic leukocytosis, Normocytic normochromic anemia, Thrombocytosis, Bilirubinemia, End stage renal disease on dialysis due to type 1 diabetes mellitus, Dehydration, Diabetic gastroparesis associated with type 1 diabetes mellitus Hematemesis Qualifiers: Nausea presence: with nausea Qualified Code(s): K92.0 - Hematemesis Nausea & vomiting Qualifiers: Vomiting type: hematemesis Qualified Code(s): K92.0 - Hematemesis Cholelithiasis Qualifiers: Cholelithiasis location: gallbladder Cholecystitis presence: without cholecystitis Biliary obstruction: without biliary obstruction Qualified Code(s): K80.20 - Calculus of gallbladder without cholecystitis without obstruction RLL pneumonia Qualifiers: Pneumonia type: due to unspecified organism Qualified Code(s): J18.9 - Pneumonia, unspecified organism Constipation Qualifiers: Constipation type: other constipation type Qualified Code(s): K59.09 - Other constipation Diabetic foot ulcer Qualifiers: Diabetic foot ulcer location: other Diabetes mellitus type: type 1 Laterality: left Disposition: Left Against Medical Advice Condition: Poor Departure Forms: ED Discharge - Pt. Copy, Patient Portal Self Enrollment Instructions: Gastrointestinal Bleeding (DC) Referrals: DIANA SANDOVAL MD [Primary Care Provider] - 1-2 Weeks Home Medications: Ambulatory Orders Acetamin W/Cod #3 Tab [Tylenol w/CODEINE #3] 1 ea PO Q4HR PRN 07/02/20 Ascorbic Acid [Vitamin C] 500 mg PO DAILY 07/02/20 Aspirin [Aspirin Childrens] 81 mg PO DAILY 07/02/20 Atorvastatin Calcium 40 mg PO BEDTIME 07/02/20 B-Complex W/ C & Folic Acid [Margo-Lisa] 1 tab PO BEDTIME 07/02/20 Clonidine HCl 0.3 mg PO BID 07/02/20 Enoxaparin Sodium [Lovenox] 30 mg SUBCU DAILY 07/02/20 Insulin Glargine [Lantus Solostar] 15 unit SC DAILY 07/02/20 Levetiracetam 250 mg PO BID 07/02/20 Lisinopril 10 mg PO DAILY 07/02/20 Metoclopramide HCl [Reglan] 10 mg PO ACHS 07/02/20 Metoprolol Tartrate 25 mg PO BID 07/02/20 Nifedipine [Nifedipine ER] 30 mg PO BID 07/02/20 Ondansetron HCl [Zofran] 4 mg PO Q4H 07/02/20 Pantoprazole Tablet [Protonix] 1 tablet PO DAILY 07/02/20 Sertraline HCl [Zoloft] 100 mg PO DAILY 07/02/20 Sevelamer HCl [Sevelamer Hydrochloride] 800 mg PO AC 07/02/20 Additional Instructions: You need to be in a hospital for the upper GI bleed to ensure it remains controlled. You need to see a GI doctor for a possible EGD (upper endoscopy). You need ongoing dialysis for the kidney failure. Please see a general surgeon or GI doctor for the cholelithiasis (gall stone joel ns). Please see a public finance specialist for the diabetic foot ulcers.
--- NOTE | 2020-07-02 14:11 | RAD ---
EXAM DESCRIPTION: Foot,Left 2 Views CLINICAL HISTORY: 39 years, Male, DM FOOT ULCER X 3, HEEL ULCER IS NECROTIC. COMPARISON: None TECHNIQUE: Two views left foot FINDINGS: Marked osteopenia and extensive vascular calcification involving the foot is noted with significant soft tissue swelling on the dorsum of the forefoot. Questionable subtle ulceration of the scan at the posterior aspect of the calcaneus without evidence of bony destructive change. The fifth ray and fifth metatarsal amputated at the proximal metatarsal level with only four toes remaining degenerative change and minimal hallux valgus of the great toe evident. Extensive vascular calcification extending into the digital arteries evident. No bony destructive changes involving the remaining metatarsals or phalanges. IMPRESSION: 1. Prior amputation of the fifth toe and distal two thirds of the fifth metatarsal without bony destructive changes in the remainder of the forefoot or toes with significant dorsal soft tissue swelling. 2. Questionable subtle ulceration of the soft tissues posterior and inferior to the calcaneus without underlying bony destructive changes. Electronically signed by: Bandar Mcnair MD 07/02/2020 2:10 PM [facility]
--- NOTE | 2020-07-02 14:16 | US ---
EXAM DESCRIPTION: Abdomen,Complete: Ultrasound. CLINICAL HISTORY: 39 years Male GEN ABD ACHE, NAUSEA, HEMATEMESIS, BILIRUBIN 2.4. COMPARISON: None Available. TECHNIQUE: Transabdominal scanning: grayscale and Doppler modes. FINDINGS: Gallbladder: Gallstones that are echogenic with acoustic shadowing, mobile with patient change in position. Also sludge. No fluid around the gallbladder. No wall thickening. 2.4 mm. Non-tender with transducer pressure. Common bile duct: caliber 5.0 mm within normal limits. Liver: Heterogeneous echogenicity; circumscribed echogenic process in the subcapsular left lobe of the liver measuring 2.4 x 2.4 x 1.3 cm but nonvascular. Contour liver capsule smooth where seen. No fluid around the liver. Intrahepatic biliary ducts normal caliber. Doppler hepatopedal flow and normal caliber portal vein 9 mm.. Long axis right lobe 16.1 cm. Pancreas: normal size and echogenicity. Duct not seen. Complete abdominal aorta: Normal caliber from the proximal segment to the distal bifurcation.. Atherosclerotic wall changes. IVC: visualized and normal caliber. Right kidney: long axis measures 9.9 cm; volume tab. Cortical echogenicity greater than the liver. Cortical thickness 8 mm.. No echogenic stones; no hydronephrosis. Left kidney: long axis measures 10.2 cm; volume tab. Cortical echogenicity greater than the liver. 10 mm cortical thickness.. No echogenic stones; no hydronephrosis. Spleen: Normal. No focal lesions.. 8.4 cm long axis. Other: Right pleural effusion. IMPRESSION: 1. Small gallstones and sludge. No wall thickening. No fluid around the wall. Nontender with transducer pressure. Normal caliber of the common bile duct. 2. Spleen is unremarkable. Heterogeneous echoes in the liver with several geographic echogenic regions. Largest in the subcapsular left lobe of the liver. 2.4 cm. Most likely hemangiomas. If there is clinical evidence of liver disease, consider nonemergent hepatic mass protocol with MRI or CT. Pancreas is negative. Right pleural effusion. 2. Bilateral kidneys with thin renal cortex and increased echogenicity greater than the liver. No echogenic stones or hydronephrosis. Correlate for renal function. Abdominal aorta and IVC normal caliber. Early atherosclerotic changes in the abdominal aorta. Electronically signed by: Mateo Chun MD 07/02/2020 2:14 PM [facility] [[email or web address]]
--- NOTE | 2020-07-02 17:01 | CT ---
EXAM DESCRIPTION: Abdomen t/Pelvis w/o Contrast CLINICAL HISTORY: 39 years, 39 years, Male, Male, LIVER LESION PER U/S. (CRF THUS W/O CONTRAST) COMPARISON: September 17, 2019, current abdominal sonogram TECHNIQUE: CT of the abdomen and pelvis is performed according to our non contrast protocol This exam was performed according to our departmental dose-optimization program, which includes automated exposure control, adjustment of the mA and/or kV according to patient size and/or use of iterative reconstruction technique. FINDINGS: Abnormal lung bases with slightly crowded markings left lung base with small layering effusion. Moderately large layering pleural effusion posterior right lung base with compressive atelectasis. All new from previous September examination. Small pericardial effusion and modest retrocardiac hiatal hernia. Extensive vascular calcification consistent with chronic arteriosclerotic disease and likely diabetes. No aortic aneurysm or retroperitoneal mass. Normal-size spleen with extensive splenic artery vascular calcification and normal hepatic density with focal hypodense oval 2.6 x 1.4 cm posterior capsular service lateral segment left lobe of the liver. In retrospect this lesion is less well delineated but likely unchanged from previous September examination. With the sonographic echogenic character hepatic hemangioma thought most likely. At the very least early follow-up examination for stability sonographically is recommended in 4-6 months. Further workup to include tagged Red cell imaging of the liver to confirm this represents a hepatic hemangioma could be performed. Because of the relatively small size SPECT imaging if this examination is performed is recommended. Distended gallbladder with normal gallbladder wall with poor delineation of small stones and/or sludge no ductal dilation. Normal appearance of the pancreas and adrenal glands. Described sonographically. Incidental note of small accessory spleen annual. Extensive renal vascular calcification extending into the renal hilum on each side with modest. Nephric stranding but no evidence of hydronephrosis or stone disease or severe cortical thinning. Moderate progression of a vascular calcification has occurred in the interval since previous September examination. Within the pelvis markedly distended bladder extending to just below the umbilicus. Although no hydronephrosis evident I wonder if the perinephric stranding surrounding each kidney represents extravasation of urine from decompressed collecting system. Consider Jackson catheterization. The possibility of neurogenic bladder or bladder outlet obstruction would be a consideration with this markedly distended bladder identified. Stool-filled rectum and colon suggesting constipation with normal-appearing appendix and no evidence of bowel obstruction or small bowel abnormality. Interval right hip replacement since prior September examination. No abdominal or pelvic ascites or free abdominal air identified. Anterior abdominal wall and inguinal regions unremarkable. Moderately extensive subcutaneous edema present, new from prior study normal alignment of the lumbar spine with mild facet arthropathy.. IMPRESSION: 1. Extensive subcutaneous edema with large right and small left layering pleural effusion with significant right basilar compressive atelectasis. Small pericardial effusion and modest retrocardiac hiatal hernia. 2. Focal hypodense 2.6 x 1.4 cm lateral segment left lobe low-density hepatic lesion that is solid in appearance and likely represents hepatic hemangioma with the echogenic sonographic appearance. Either sonographic follow-up in 6-9 months to confirm stability or consider further workup to include tagged Red cell scan liver imaging with SPECT imaging. Noncontrast MRI of the abdomen could be obtained as well but will be less helpful with the lack of gadolinium enhancement in this renal failure patient. In retrospect this lesion is subtly present on previous CT examination with little change from prior study. 3. Significant progression of vascular calcification since previous September CT examination suggesting rapidly progressing arterial sclerotic change. 4. Extensive bilateral perinephric stranding surrounding each kidney, relatively normal in size with extensive renal vascular calcification and relatively normal collecting systems. 5. Large distended bladder extending to near the umbilicus suggesting a bladder outlet obstruction or neurogenic bladder. Possibility of perinephric extravasation of urine from the renal collecting systems would be a consideration. Consider Jackson catheterization and reassessment of renal function. 6. Large distended gallbladder with poorly defined sludge or stones in the dependent gallbladder without wall thickening. 7. Additional hepatic lesions not apparent. 8. Stool-filled rectum and left colon suggesting an element of constipation. Electronically signed by: Bandar Mcnair MD 07/02/2020 4:59 PM [facility]
[2020-07-02 20:17] VITALS: O2SAT 95
[2020-07-02] MEDS ORDERED: ONDANSETRON ODT 8 MG TAB ONE (20:55)
[2020-07-02] MEDS ORDERED: ONDANSETRON ODT 8 MG TAB SL ONE (21:29)
[2020-07-02 22:12] VITALS: BP 177/95; TEMP 98.1
== END 2020-07-02 21:05 | disposition left against medical advice (07) ==
LOC: ER 11:20
DX: J18.9 Pneumonia, unspecified organism (principal); K92.0 Hematemesis; K31.84 Gastroparesis; R11.2 Nausea with vomiting, unspecified; E86.0 Dehydration; K80.20 Calculus of gallbladder without cholecystitis without obstruction; K59.09 Other constipation; E10.43 Type 1 diabetes mellitus with diabetic autonomic (poly)neuropathy; D47.3 Essential (hemorrhagic) thrombocythemia; E80.7 Disorder of bilirubin metabolism, unspecified; D72.829 Elevated white blood cell count, unspecified; E10.621 Type 1 diabetes mellitus with foot ulcer; L97.529 Non-pressure chronic ulcer of other part of left foot with unspecified severity; N18.6 End stage renal disease; E10.22 Type 1 diabetes mellitus with diabetic chronic kidney disease; E10.42 Type 1 diabetes mellitus with diabetic polyneuropathy; I12.0 Hypertensive chronic kidney disease with stage 5 chronic kidney disease or end stage renal disease; K21.9 Gastro-esophageal reflux disease without esophagitis; Z53.29 Procedure and treatment not carried out because of patient's decision for other reasons; Z99.2 Dependence on renal dialysis; Z86.73 Personal history of transient ischemic attack (TIA), and cerebral infarction without residual deficits; Z87.891 Personal history of nicotine dependence; Z89.422 Acquired absence of other left toe(s); Z89.511 Acquired absence of right leg below knee; Z79.4 Long term (current) use of insulin; Z79.899 Other long term (current) drug therapy; Z20.828 Contact with and (suspected) exposure to other viral communicable diseases
CPT/HCPCS: 36415; 36416; 71045; 73620; 74018; 74176; 76700; 80053; 82009; 82150; 82271; 82948; 83690; 83986; 85025; 85610; 85730; 87635; 93005; A4216; J2405; J3490; J7040

== ENCOUNTER → 2020-07-17 | Outpatient (CLI) | payer OTHER | LOC: GT 06:24 | PROVIDERS: ATTEND Family Medicine | DX: R30.0 Dysuria (principal); R33.0 Drug induced retention of urine ==

== ENCOUNTER 2020-08-25 17:33 | Emergency (ER) | payer MEDICARE, OTHER ==
[2020-08-25] MEDS ORDERED: FUROSEMIDE INJ 100 MG/10 ML VIAL IV ONE ×2 (18:22→19:49)
--- NOTE | 2020-08-25 18:28 | RAD ---
EXAM DESCRIPTION: Chest,1 View CLINICAL HISTORY:39 years Male, sob Comparison: Chest radiograph dated July 02, 2020 FINDINGS: Worsened bilateral interstitial opacities, left greater than right Small bilateral pleural effusions. No pneumothorax. Cardiomediastinal silhouette is mildly enlarged. No acute osseous abnormality. IMPRESSION: Positive for pulmonary opacities. Differential diagnosis includes viral infections. Small bilateral pleural effusions. Electronically signed by: Reji Miller DO 08/25/2020 6:26 PM [employer]
[2020-08-25] MEDS ORDERED: FUROSEMIDE INJ 20 MG/2 ML VIAL ONE ×2 (18:38→19:51)
[2020-08-25] MEDS ORDERED: FUROSEMIDE INJ 40 MG/4 ML VIAL ONE ×2 (18:38→19:51)
[2020-08-25] MEDS ORDERED: SOD POLYSTYRENE SULFONATE 15 GM/60 ML BTTL PO ONE (18:54)
[2020-08-25] MEDS ORDERED: NITROGLYCERIN 0.4 MG 25 EA TAB SL STA (18:54)
[2020-08-25] MEDS ORDERED: NITROGLYCERIN/D5W IV 50,000 MCG in PREMIX BOTTLE 1 BOTTLE IVS SCH (19:00)
--- NOTE | 2020-08-25 19:03 | ED.PDOC ---
History of Present Illness - General Chief Complaint: Blood Pressure Problem Stated Complaint: elevated BP Time Seen by Provider: 08/25/20 17:57 - History of Present Illness Initial Comments: PATIENT SENT FROM THE LONG-TERM FOR ELEVATED BLOOD PRESSURE. FOR SOME REASON THAT IS NOT CLEAR AT THIS TIME, ALL OF HIS BLOOD PRESSURE MEDICATIONS HAVE BEEN DISCONTINUED OVER THE LAST WEEK OR SO (LISINOPRIL, NORVASC, CLONIDINE, METOPROL OL) AND HE WAS ONLY STARTED ON A LOW DOSE OF HYDROCHLOROTHIAZIDE. PATIENT ON DIALYSIS FOR CHRONIC RENAL FAILURE. HE DENIES ANY SOB, BUT IS NOTED TO BE MODERATELY TACHYPNIC IN THE ED AND HAS A LOW PULSE OXIMETRY ON RA. *(70'S), PATIENT HAD COVID-19 6 MONTHS AGO. HE IS NOW TESTED TWICE WEEKLY AT THE LONG-TERM AND HAS REMAINED NEGATIVE SINCE. WAS MOST RECENTLY DIALYSIS WAS 2 DAYS AGO AND HE IS SCHEDULED FOR TOMORROW. PATIENT WITH SEVERE PVD, NEUROPATHY, PRIOR RIGHT BKA, DIABETES ON INSULIN, Improving Factors: nothing Worsening Factors: nothing Nitro Today/Relief: no nitro taken today Allergies/Adverse Reactions: Allergies Vancomycin Allergy (Verified 07/02/20 11:30) Home Medications: Ambulatory Orders Insulin Glargine [Lantus Solostar] 18 unit SC DAILY 07/02/20 Levetiracetam 250 mg PO BID 07/02/20 Metoclopramide HCl [Reglan] 5 mg PO ACHS 07/02/20 Ondansetron HCl [Zofran] 4 mg PO Q4H PRN 07/02/20 Pantoprazole Tablet [Protonix] 1 tablet PO DAILY 07/02/20 Sertraline HCl [Zoloft] 100 mg PO BEDTIME 07/02/20 Sevelamer HCl [Sevelamer Hydrochloride] 800 mg PO AC 07/02/20 Amlodipine Besylate 10 mg PO DAILY 08/25/20 Cadexomer Iodine [Iodosorb] 0.9 % EX BID 08/25/20 Folic Acid 400 mcg PO DAILY 08/25/20 Gabapentin 400 mg PO DAILY 08/25/20 HYDROcodone 5MG/APAP 325MG [Emerson 5/325] 1 ea PO Q6H PRN 08/25/20 Hydrochlorothiazide 12.5 mg PO DAILY 08/25/20 Insulin Lispro [HumaLOG] 100 unit SC ACHS 08/25/20 Ipratropium-Albuterol [Ipratropium [place]/Albut] 1 gunnar IN Q4H PRN 08/25/20 Linaclotide [Linzess] 145 mcg PO DAILY 08/25/20 Promethazine HCl 12.5 mg PO TID PRN 08/25/20 Scopolamine [Transderm-Scop] 1 mg TD Q72H PRN 08/25/20 Telmisartan [Micardis] 80 mg PO DAILY 08/25/20 Trazodone HCl 150 mg PO BEDTIME 08/25/20 Review of Systems - Review of Systems Constitutional: States: no symptoms reported EENTM: States: no symptoms reported Respiratory: States: no symptoms reported Cardiology: States: no symptoms reported Gastrointestinal/Abdominal: States: no symptoms reported Genitourinary: States: no symptoms reported Past Medical History (General) - Patient Medical History Hx Seizures: No Hx Stroke: Yes - 2019 Hx Dementia: No Hx Asthma: Yes - child Hx of COPD: No Hx Cardiac Disorders: No Hx Congestive Heart Failure: No Hx Pacemaker: No Hx Hypertension: Yes Hx Thyroid Disease: No Hx Diabetes: Yes Hx Gastroesophageal Reflux: Yes Hx Renal Disease: Yes - stage 4 kidney failure,Dialysis Hx Cancer: No Hx of HIV: No Hx Hepatitis C: No Hx MRSA: No - Vaccination History Hx Tetanus, Diphtheria Vaccination: Yes Hx Influenza Vaccination: Yes Hx Pneumococcal Vaccination: Yes - Social History Hx Tobacco Use: Yes Hx Alcohol Use: No Hx Substance Use: Yes Hx Substance Use Treatment: No Hx Depression: No Hx Physical Abuse: No Hx Emotional Abuse: No Hx Suspected Abuse: No - Activities of Daily Living [facility]if applicable[facility] - Female History Patient : No Family Medical History - Family History Mother Family History: Unknown Living Status: Still Living Hx Family Diabetes: Yes - multiple family members Hx Family Cancer: Yes - skin Physical Exam - Physical Exam General Appearance: Alert, Well Developed, Well Groomed, Well Hydrated, Well Nourished Eyes, Ears, Nose, Throat Exam: PERRL/EOMI Neck: non-tender Respiratory: chest non-tender, crackles - DIFUSE, rales - DIFFUSE Cardiovascular/Chest: normal peripheral pulses, regular rate, rhythm, tachycardi a Gastrointestinal/Abdominal: normal bowel sounds, non tender, soft, no organomegaly Extremity: normal range of motion, non-tender, normal inspection Progress - Progress Progress: 08/25/20 21:05 WITH AGGRESSIVE USE OF NTG, PRESSURE IS NOT 160/95, URINE OUTPUT HAS MARKEDLY PICKED UP. O2 SAT NOW 98-99 ON 4L/NC. WAS INITIALLY 92-94 ON SAME. APPEARS HE IS BEGINNING TO RESPOND WELL TO TREATMENT, HOWEVER, HE REALLY WILL NEED TO BE WEANED OFF NTG AND RECEIVE RENAL DIALYSIS, FEEL THIS SHOUD DONE BY [facility] SCIENTIST AND/OR NEPHRLOGIST, PATIENT CANNOT BE ADMITTED TO THIS HOSPITAL WE HAVE NEITHER SERVICE. HE HAS BEEN ACCEPTED TO [facility] BY THE ER PHYSICIAN IN [place]. HAVE COUNSELED WITH THE PATIENT ABOUT THE REASON FOR TRANSFER, HE VOICED UNDERSTANDING. Departure - Departure Clinical Impression: Hyperkalemia, Low oxygen saturation Pulmonary edema Qualifiers: Chronicity: acute Qualified Code(s): J81.0 - Acute pulmonary edema Fluid overload Qualifiers: Hypervolemia type: unspecified Qualified Code(s): E87.70 - Fluid overload, unspecified Chronic renal failure Qualifiers: Chronic kidney disease stage: stage 5 Qualified Code(s): N18.5 - Chronic kidney disease, stage 5 Time of Disposition: 21:10 Disposition: Transfer to Hospital Departure Forms: ED Discharge - Pt. Copy, Patient Portal Self Enrollment Instructions: DI for High Blood Pressure Referrals: DIANA SANDOVAL MD [Primary Care Provider] - 1-2 Weeks Home Medications: Ambulatory Orders Insulin Glargine [Lantus Solostar] 18 unit SC DAILY 07/02/20 Levetiracetam 250 mg PO BID 07/02/20 Metoclopramide HCl [Reglan] 5 mg PO ACHS 07/02/20 Ondansetron HCl [Zofran] 4 mg PO Q4H PRN 07/02/20 Pantoprazole Tablet [Protonix] 1 tablet PO DAILY 07/02/20 Sertraline HCl [Zoloft] 100 mg PO BEDTIME 07/02/20 Sevelamer HCl [Sevelamer Hydrochloride] 800 mg PO AC 07/02/20 Amlodipine Besylate 10 mg PO DAILY 08/25/20 Cadexomer Iodine [Iodosorb] 0.9 % EX BID 08/25/20 Folic Acid 400 mcg PO DAILY 08/25/20 Gabapentin 400 mg PO DAILY 08/25/20 HYDROcodone 5MG/APAP 325MG [[place]erson 5/325] 1 ea PO Q6H PRN 08/25/20 Hydrochlorothiazide 12.5 mg PO DAILY 08/25/20 Insulin Lispro [HumaLOG] 100 unit SC ACHS 08/25/20 Ipratropium-Albuterol [Ipratropium [place]/Albut] 1 gunnar IN Q4H PRN 08/25/20 Linaclotide [Linzess] 145 mcg PO DAILY 08/25/20 Promethazine HCl 12.5 mg PO TID PRN 08/25/20 Scopolamine [Transderm-Scop] 1 mg TD Q72H PRN 08/25/20 Telmisartan [Micardis] 80 mg PO DAILY 08/25/20 Trazodone HCl 150 mg PO BEDTIME 08/25/20
[2020-08-25] MEDS ORDERED: DEXTROSE 50% 25 GM/50 ML SYG IV ONE (20:22)
[2020-08-25] MEDS ORDERED: INSULIN, REG.(HUMAN) 100 U/ML VIAL IV ONE (20:22)
[2020-08-25] MEDS ORDERED: cefTRIAXone SODIUM 1 GM in SODIUM CHL 0.9% 50ML MIN-BAG+ 50 ML IVPB ONE (20:42)
[2020-08-25] MEDS ORDERED: SOD POLYSTYRENE SULFONATE 15 GM/60 ML BTTL PR ONE (20:43)
[2020-08-25 21:30] VITALS: O2SAT 96
[2020-08-25 21:42] VITALS: BP 156/102; TEMP 97.3
== END 2020-08-25 22:00 | disposition short-term general hospital (02) ==
LOC: ER 17:33
DX: N18.5 Chronic kidney disease, stage 5 (principal); E87.70 Fluid overload, unspecified; J81.0 Acute pulmonary edema; R06.02 Shortness of breath; E87.5 Hyperkalemia; I12.0 Hypertensive chronic kidney disease with stage 5 chronic kidney disease or end stage renal disease; E11.22 Type 2 diabetes mellitus with diabetic chronic kidney disease; E11.40 Type 2 diabetes mellitus with diabetic neuropathy, unspecified; I73.9 Peripheral vascular disease, unspecified; Z20.822 Contact with and (suspected) exposure to COVID-19; Z99.2 Dependence on renal dialysis; Z79.899 Other long term (current) drug therapy; Z79.4 Long term (current) use of insulin; Z88.1 Allergy status to other antibiotic agents
CPT/HCPCS: 36415; 36600; 71045; 80053; 81001; 82803; 82805; 82948; 83880; 84484; 85025; 85379; 87086; 87635; 93005; J0696; J1940; J7050; J7799

== ENCOUNTER → 2020-10-01 | Outpatient (CLI) | payer MEDICARE ==
--- NOTE | 2020-10-02 12:06 | RAD ---
EXAM DESCRIPTION: Chest,2 Views CLINICAL HISTORY: shortness of breath COMPARISON: August 25, 2020 TECHNIQUE: PA/lateral FINDINGS: Two views of the chest show improved inspiration compared to previous portable study. Central vascular congestion and hazy alveolar edematous or inflammatory changes in the left parahilar and infrahilar region suspected. No significant left-sided pleural effusion or basilar consolidation noted. On the right lung base is elevated with a moderate layering pleural effusion with compressive atelectasis and/or consolidation in the infrahilar region. At least mild cardiomegaly is evident. IMPRESSION: 1. Evolving chest with improved inspiration but mixed pleural and parenchymal changes and elevated right lung base slightly more prominent than previously seen. 2. Improved aeration of the left lung and left lung base with central vascular congestion and parahilar and infrahilar edema/infiltrate. This could all be related to volume overload and cardiac decompensation but the possibility of an inflammatory process particularly in the left lung and the right lung base cannot be excluded. Electronically signed by: Bandar Mcnair MD 10/02/2020 12:05 PM [facility]
== END ==
LOC: LAB.O 15:55
PROVIDERS: ATTEND Family Medicine
DX: R06.02 Shortness of breath (principal); I12.0 Hypertensive chronic kidney disease with stage 5 chronic kidney disease or end stage renal disease; I10 Essential (primary) hypertension; E10.40 Type 1 diabetes mellitus with diabetic neuropathy, unspecified; R91.8 Other nonspecific abnormal finding of lung field; E56.8 Deficiency of other vitamins; N18.6 End stage renal disease